=== PATIENT | male | born 1965 | race Two or more races ===

== ENCOUNTER 2019-11-23 15:44 | Inpatient (IN) | payer MEDICARE ==
[~2019-11-23] VITALS: Ht 172.7 cm; Wt 74.8 kg
[2019-11-23 15:58] VITALS: BP 137/82
--- NOTE | 2019-11-23 15:59 | NUR ---
ED Nurse Note: Patient was BIBA from [place], due to small lesion on his left foot. Patient stated he has DM type II and did not take his meds X 2weeks. 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 Patient presented calm, cooperative, AAO x4, VSS at this time, BS 137 at bedside.
[2019-11-23] MEDS ORDERED: Vancomycin 1 GM in NS 275 ML IVPB ONE (16:30)
--- NOTE | 2019-11-23 16:55 | Diagnostic Imaging Report ---
Indication: Left toe pain and injury Comparison: None Findings: 3 views of the left forefoot obtained. There is evidence of erosion of the fourth proximal and distal phalange presumably on the basis of acute osteomyelitis. Correlate clinically. Patient has had prior amputation at the base of the fifth metatarsal. There is a well-corticated periarticular erosion on the medial side of the first interphalangeal joint. Similar finding in the medial side of the second proximal interphalangeal joint also noted. The nature of these lesions is unknown but the incidental obviously and may be due to inflammatory arthritis. Correlate clinically. IMPRESSION: Extensive erosion of the middle and distal phalanges of the fourth toe suspicious for acute osteomyelitis. Correlate clinically. Scattered periarticular erosions. Consider inflammatory arthritis
[2019-11-23 17:10] LABS: BASOPHILS % (AUTO) 1.4 % (0.0-2.0); EOSINOPHILS % (AUTO) 1.4 % (0.0-3.0); HEMATOCRIT 32.6 % (42.0-52.0); HEMOGLOBIN 11.5 G/DL (14.2-18.0); LYMPHOCYTES % (AUTO) 15.2 % (20.0-45.0); MEAN CORPUSCULAR VOLUME 90 FL (80-99); MONOCYTES % (AUTO) 8.4 % (1.0-10.0); NEUTROPHILS % (AUTO) 73.6 % (45.0-75.0); PLATELET COUNT 293 K/UL (150-450); RED BLOOD COUNT 3.63 M/UL (4.70-6.10); RED CELL DISTRIBUTION WIDTH 10.1 % (11.6-14.8); WHITE BLOOD COUNT 8.7 K/UL (4.8-10.8)
[2019-11-23 17:51] LABS: ALANINE AMINOTRANSFERASE 26 U/L (12-78); ANION GAP 11 mmol/L (5-15); ASPARTATE AMINO TRANSFERASE 17 U/L (15-37); BILIRUBIN,TOTAL 0.3 MG/DL (0.2-1.0); BLOOD UREA NITROGEN 22 mg/dL (7-18); CALCIUM 8.3 MG/DL (8.5-10.1); CARBON DIOXIDE 22 MMOL/L (21-32); CHLORIDE 102 MMOL/L (98-107); CREATININE 1.1 MG/DL (0.55-1.30); POTASSIUM 3.6 MMOL/L (3.5-5.1); SODIUM 135 MMOL/L (136-145)
[2019-11-23 17:52] LABS: ALBUMIN 3.3 G/DL (3.4-5.0); ALBUMIN/GLOBULIN RATIO 0.8 (1.0-2.7); ALKALINE PHOSPHATASE 108 U/L (46-116)
--- NOTE | 2019-11-23 21:47 | Emergency Room Report ---
History of Present Illness General Chief Complaint: Skin Rash/Abscess Source: EMS Present Illness Allergies: Coded Allergies: No Known Allergies (Unverified , 11/23/19) Nursing Documentation-[facility] Past Medical History: No History, Except For Hx Hypertension: Yes Hx Diabetes: Yes History Of Psychiatric Problem: Yes - depression Physical Exam Vital Signs Date Time Temp Pulse Resp B/P (MAP) Pulse Ox O2 Delivery O2 Flow Rate FiO2 11/23/19 15:39 98.8 104 22 137/82 (100) 95 Room Air Medical Decision Making Diagnostic Impression: Primary Impression: Cellulitis Additional Impressions: Diabetic foot ulcer Osteomyelitis Laboratory Tests Test 11/23/19 16:36 White Blood Count 8.7 K/UL (4.8-10.8) Red Blood Count 3.63 M/UL (4.70-6.10) L Hemoglobin 11.5 G/DL (14.2-18.0) L Hematocrit 32.6 % (42.0-52.0) L Mean Corpuscular Volume 90 FL (80-99) Mean Corpuscular Hemoglobin 31.8 PG (27.0-31.0) H Mean Corpuscular Hemoglobin Concent 35.4 G/DL (32.0-36.0) Red Cell Distribution Width 10.1 % (11.6-14.8) L Platelet Count 293 K/UL (150-450) Mean Platelet Volume 7.1 FL (6.5-10.1) Neutrophils (%) (Auto) 73.6 % (45.0-75.0) Lymphocytes (%) (Auto) 15.2 % (20.0-45.0) L Monocytes (%) (Auto) 8.4 % (1.0-10.0) Eosinophils (%) (Auto) 1.4 % (0.0-3.0) Basophils (%) (Auto) 1.4 % (0.0-2.0) Sodium Level 135 MMOL/L (136-145) L Potassium Level 3.6 MMOL/L (3.5-5.1) Chloride Level 102 MMOL/L (98-107) Carbon Dioxide Level 22 MMOL/L (21-32) Anion Gap 11 mmol/L (5-15) Blood Urea Nitrogen 22 mg/dL (7-18) H Creatinine 1.1 MG/DL (0.55-1.30) Estimate Glomerular Filtration Rate > 60 mL/min (>60) Glucose Level 161 MG/DL (74-106) H Calcium Level 8.3 MG/DL (8.5-10.1) L Total Bilirubin 0.3 MG/DL (0.2-1.0) Aspartate Amino Transferase (AST) 17 U/L (15-37) Alanine Aminotransferase (ALT) 26 U/L (12-78) Alkaline Phosphatase 108 U/L (46-116) Total Protein 7.6 G/DL (6.4-8.2) Albumin 3.3 G/DL (3.4-5.0) L Globulin 4.3 g/dL Albumin/Globulin Ratio 0.8 (1.0-2.7) L Other X-Ray Diagnostic Results Other X-Ray Diagnostic Results : X-Ray ordered: Toe xray # of Views/Limited Vs Complete: Complete Indication: Pain EP Interpretation: No Interpretation: other - see below Impression: Other - IMPRESSION:Extensive erosion of the middle and distal phalanges of the fourth toe suspicious for osteomyelitis. Last Vital Signs Date Time Temp Pulse Resp B/P (MAP) Pulse Ox O2 Delivery O2 Flow Rate FiO2 11/23/19 15:58 98.8 98 22 137/82 95 Room Air Disposition: ADMITTED INPATIENT Condition: Serious Referrals: NON PHYSICIAN (PCP) Umm Tran DO Nov 23, 2019 21:47
[2019-11-24] VITALS: BP 127/64
--- NOTE | 2019-11-24 00:18 | NUR ---
NURSES NOTE: Received pt at apprx 2130 from ER. Pt is A/OX4, able to communicate needs, denies pain. No outward s/s of distress noted. Breathing pattern is even and unlabored on RA. VS within normal limits. Head to toe assessment completed. Bilateral feet presents with discoloration. Redness and dryness noted. Toe nails also discolored. Amputated fifth digit on both feet. Dr Andrade called for admitting orders. Awaiting call back. Pt oriented to room amenities. Call light within reach. Bed at lowest level. Pt will continue to be monitored.
[2019-11-24 04:00] VITALS: BP 125/71
[2019-11-24] MEDS ORDERED: Vancomycin 1gm/D5W 275ml IVPB SCH ×2 (05:00)
[2019-11-24] MEDS: Piperacillin/Tazobactam 3.375 GM in NS 110 ML IVPB SCH ×3 (06:00→22:08)
--- NOTE | 2019-11-24 06:27 | NUR ---
ED Nurse Note: Patient was admited to [facility] due to celullitis of his left foot. Patient AAO x4, VSS at thos time. Patient was transfered to the unit via gurney, with all belongings.
[2019-11-24] MEDS: NovoLOG Insulin Flexpen SUBQ SCH ×4 (06:30→22:10)
[2019-11-24 07:06] LABS: ANION GAP 9 mmol/L (5-15); BLOOD UREA NITROGEN 13 mg/dL (7-18); CALCIUM 7.8 MG/DL (8.5-10.1); CARBON DIOXIDE 23 MMOL/L (21-32); CHLORIDE 106 MMOL/L (98-107); CREATININE 0.8 MG/DL (0.55-1.30); POTASSIUM 3.8 MMOL/L (3.5-5.1); SODIUM 138 MMOL/L (136-145)
--- NOTE | 2019-11-24 07:30 | NUR ---
HAND OFF: Report given to gaby Dove.
[2019-11-24 07:38] LABS: BASOPHILS % (AUTO) 1.3 % (0.0-2.0); EOSINOPHILS % (AUTO) 2.9 % (0.0-3.0); HEMATOCRIT 28.6 % (42.0-52.0); HEMOGLOBIN 10.2 G/DL (14.2-18.0); LYMPHOCYTES % (AUTO) 21.9 % (20.0-45.0); MEAN CORPUSCULAR VOLUME 90 FL (80-99); MONOCYTES % (AUTO) 9.3 % (1.0-10.0); NEUTROPHILS % (AUTO) 64.5 % (45.0-75.0); PLATELET COUNT 245 K/UL (150-450); RED BLOOD COUNT 3.18 M/UL (4.70-6.10); RED CELL DISTRIBUTION WIDTH 10.3 % (11.6-14.8); WHITE BLOOD COUNT 7.1 K/UL (4.8-10.8)
--- NOTE | 2019-11-24 07:42 | NUR ---
NURSE NOTES: received patient A/A/Ox4, in bed. pleasant and able to verbalize needs. Left lower extremity is swollen and dry scab on the amputated foot. elevated with pillow. patient able to ambulate with an assistive device. IV access patent and intact. IVF infusing well. no acute resp distress noted. call light is within reach. bed alarm engaged and locked. will cont to monitor.
[2019-11-24 08:00] VITALS: BP 144/82
[2019-11-24] MEDS: Enoxaparin 40mg Inj SUBQ SCH (09:21)
--- NOTE | 2019-11-24 10:25 | NUR ---
[facility] CQ DEVELOPER CONSULT SW received a referral for homelessness on 11/24/2019. Pt presents as A&O 4x, cooperative and friendly. Pt is and has 3 adult children. Pt has been homeless for more than 5 years. Per pt, the address on facesheet, [address] , [place] [address] is his family's address. Pt reports he receives poor family support and no social support. Emergency contact provided: Ck Sawyer (eldest son) [phone]. Pt receives SSI, self-payee, and has some income left for this month. SW reviewed SUB/TOB use hx w/ pt. PT uses tobacco and denies substance abuse. Pt declined counseling/tx intervention/resource on substance abuse. PT has no AD/POLST and pt is willing to receive information on AD. Pt denies hx of mental illness, but reports hx of Seizure. Pt denies hx of SI/HI and the current SI/HI. Pt wears glasses, and is ambulatory w/ cane. Pt reports he is independent w/ ADLs. Per pt, he has two bicycles and two scooters in his storage. Bicycles and scooters are his main transportation. SW and pt discussed possible placement options including board and care , independent living facilities and shelters. Pt reports he was placed various board and acres and independent living facilities in the past and he no longer wants to consider such placements. Pt also reports he was linked to various homeless programs but there was no F/U so he refused to get information/resource on homeless programs. Pt states "I want to get my own place." SW explained the current section 8 voucher and low income housing situation that such option is not available immediately. Pt verbalized understanding. SW provide the list of winter shelters, [facility] Directive and homeless resource including drop in centers, list of transitional living. Signed: 11/24/19 at 1045 by JUAN CARLOS MTZ <Co-Signature Required>
--- NOTE | 2019-11-24 10:33 | History and Physical ---
History of Present Illness General Date patient seen: Nov 24, 2019 Reason for Hospitalization: Skin Rash/Abscess Present Illness HPI Patient is a pleasant 54-year-old male with history of diabetes and left foot fifth toe amputation from prior diabetic foot infection presented to the ER with worsening left foot fourth toe infection. Patient states that this problem started about 2 months ago. Initially started with a sore on the same toe. Patient does not wear proper diabetic shoes. He does not take his medications regularly either. He feels depressed however denies suicidal ideation. He says his SSI money is not enough to allow him to live alone and he does not like living with other people. He denies any fever, chills, nausea , vomiting, diarrhea. He was previously seen at [facility]. Denies any recent trauma. Past medical and surgical history: Diabetes and fifth ray amputation bilateral feet Social history: Smokes cigarettes, denies illicit drug use or alcohol Family history: Does not know if any of his family members had diabetes Allergies: Coded Allergies: No Known Allergies (Unverified , 11/23/19) Patient History Healthcare decision maker Resuscitation status Full Code Advanced Directive on File No Review of Systems Constitutional: Denies: no symptoms, see HPI, chills, sweats, fever, malaise, weakness, other Eye: Denies: no symptoms, see HPI, eye pain, blurred vision, tearing, double vision, nose pain, nose congestion, acuity changes, discharge, other ENT: Denies: no symptoms, see HPI, ear pain, ear discharge, nose pain, nose congestion, throat pain, throat swelling, mouth pain, hearing loss, nasal discharge, other Respiratory: Denies: no symptoms, see HPI, cough, orthopnea, shortness of breath, stridor, wheezing, COLBERT, sputum, other Cardiovascular: Denies: no symptoms, see HPI, chest pain, edema, palpitations, syncope, PND, other Musculoskeletal: Denies: no symptoms, see HPI, back pain, gout, joint pain, joint swelling, muscle pain, muscle stiffness, other Skin: Reports: other - 4th left toe draiange Psychiatric: Reports: anxiety, depressed feelings, emotional problems Neurological: Denies: no symptoms, see HPI, headache, numbness, paresthesia, seizure, tingling, tremors, focal weakness, syncope, dizziness, other Endocrine: Denies: no symptoms, see HPI, excessive sweating, flushing, intolerance to temperature, increased thirst, increased urine, unexplained weight loss, other Hematologic/Lymphatic: Denies: no symptoms, see HPI, anemia, blood clots, easy bleeding, easy bruising, swollen glands, diathesis, other Physical Exam General Appearance: no apparent distress Lines, tubes and drains: peripheral HEENT: normocephalic, atraumatic, anicteric Neck: non-tender, normal alignment, supple Respiratory/Chest: chest wall non-tender, lungs clear, normal breath sounds Cardiovascular/Chest: normal peripheral pulses, normal rate, regular rhythm, no gallop/murmur, no JVD Abdomen: normal bowel sounds, non tender, soft, no organomegaly Extremities: other Skin Exam: other - full-thickness ulceration noted on the lateral aspect of the left fourth toe. There is scant serous drainage noted from the site. No malodor is noted. Skin is erythematous. No bone or tendon exposed. Surgical incision sites from previous surgeries bilateral are healed. Neurologic: steep tender II-XII grossly normal, no motor/sensory deficits, oriented x 3 Musculoskeletal: normal muscle bulk Physical Exam Narrative Last 24 Hour Vital Signs Date Time Temp Pulse Resp B/P (MAP) Pulse Ox O2 Delivery O2 Flow Rate FiO2 11/24/19 08:00 98.6 85 19 144/82 (102) 99 11/24/19 04:00 97.8 77 14 125/71 (89) 99 11/24/19 00:15 Room Air 11/24/19 00:00 98.9 81 15 127/64 (85) 98 11/23/19 21:13 98.2 84 18 125/89 99 Room Air 11/23/19 15:58 98.8 98 22 137/82 95 Room Air 11/23/19 15:39 98.8 104 22 137/82 (100) 95 Room Air Intake and Output 11/23/19 11/24/19 19:00 07:00 Intake Total 710 ml Output Total 800 ml Balance -90 ml Intake Oral 710 ml Output Urine Total 800 ml # Voids 1 Laboratory Tests Test 11/23/19 16:36 11/24/19 06:15 White Blood Count 8.7 K/UL (4.8-10.8) 7.1 K/UL (4.8-10.8) Red Blood Count 3.63 M/UL (4.70-6.10) L 3.18 M/UL (4.70-6.10) L Hemoglobin 11.5 G/DL (14.2-18.0) L 10.2 G/DL (14.2-18.0) L Hematocrit 32.6 % (42.0-52.0) L 28.6 % (42.0-52.0) L Mean Corpuscular Volume 90 FL (80-99) 90 FL (80-99) Mean Corpuscular Hemoglobin 31.8 PG (27.0-31.0) H 32.2 PG (27.0-31.0) H Mean Corpuscular Hemoglobin Concent 35.4 G/DL (32.0-36.0) 35.8 G/DL (32.0-36.0) Red Cell Distribution Width 10.1 % (11.6-14.8) L 10.3 % (11.6-14.8) L Platelet Count 293 K/UL (150-450) 245 K/UL (150-450) Mean Platelet Volume 7.1 FL (6.5-10.1) 7.2 FL (6.5-10.1) Neutrophils (%) (Auto) 73.6 % (45.0-75.0) 64.5 % (45.0-75.0) Lymphocytes (%) (Auto) 15.2 % (20.0-45.0) L 21.9 % (20.0-45.0) Monocytes (%) (Auto) 8.4 % (1.0-10.0) 9.3 % (1.0-10.0) Eosinophils (%) (Auto) 1.4 % (0.0-3.0) 2.9 % (0.0-3.0) Basophils (%) (Auto) 1.4 % (0.0-2.0) 1.3 % (0.0-2.0) Sodium Level 135 MMOL/L (136-145) L 138 MMOL/L (136-145) Potassium Level 3.6 MMOL/L (3.5-5.1) 3.8 MMOL/L (3.5-5.1) Chloride Level 102 MMOL/L (98-107) 106 MMOL/L (98-107) Carbon Dioxide Level 22 MMOL/L (21-32) 23 MMOL/L (21-32) Anion Gap 11 mmol/L (5-15) 9 mmol/L (5-15) Blood Urea Nitrogen 22 mg/dL (7-18) H 13 mg/dL (7-18) Creatinine 1.1 MG/DL (0.55-1.30) 0.8 MG/DL (0.55-1.30) Estimat Glomerular Filtration Rate > 60 mL/min (>60) > 60 mL/min (>60) Glucose Level 161 MG/DL (74-106) H 203 MG/DL (74-106) H Calcium Level 8.3 MG/DL (8.5-10.1) L 7.8 MG/DL (8.5-10.1) L Total Bilirubin 0.3 MG/DL (0.2-1.0) Aspartate Amino Transf (AST/SGOT) 17 U/L (15-37) Alanine Aminotransferase (ALT/SGPT) 26 U/L (12-78) Alkaline Phosphatase 108 U/L (46-116) Total Protein 7.6 G/DL (6.4-8.2) Albumin 3.3 G/DL (3.4-5.0) L Globulin 4.3 g/dL Albumin/Globulin Ratio 0.8 (1.0-2.7) L Microbiology Date/Time Source Procedure Growth Status 11/23/19 20:45 Rectum Received Height (Feet): 5 Height (Inches): 8.00 Weight (Pounds): 165 Medications Current Medications Medications (Trade) Dose Ordered Sig/Isela Route PRN Reason Start Time Stop Time Status Last Admin Dose Admin Acetaminophen (Tylenol) 650 mg Q6H PRN ORAL Mild Pain/Temp > 100.5 11/24/19 03:30 12/24/19 03:29 Acetaminophen/ Hydrocodone Bitart ([place] 10/325) 1 tab Q6H PRN ORAL Severe Pain (Pain Scale 7-10) 11/24/19 03:30 12/01/19 03:29 Acetaminophen/ Hydrocodone Bitart ([place] 5/325) 1 tab Q6H PRN ORAL Moderate Pain (Pain Scale 4-6) 11/24/19 03:30 12/01/19 03:29 Dextrose (Dextrose 50%) 25 ml Q30M PRN IV Hypoglycemia 11/24/19 04:00 12/24/19 03:59 Dextrose (Dextrose 50%) 50 ml Q30M PRN IV Hypoglycemia 11/24/19 04:00 12/24/19 03:59 Enoxaparin Sodium (Lovenox) 40 mg DAILY SUBQ 11/24/19 09:00 12/24/19 08:59 11/24/19 09:21 Insulin Aspart (NovoLOG) BEFORE MEALS AND HS SUBQ 11/24/19 06:30 12/24/19 06:29 11/24/19 06:30 Ondansetron HCl (Zofran) 4 mg Q4H PRN IVP Nausea & Vomiting 11/24/19 03:30 12/24/19 03:29 Piperacillin Sod/ Tazobactam Sod 3.375 gm/Sodium Chloride 110 ml @ 27.5 mls/hr EVERY 8 HOURS IVPB 11/24/19 06:00 11/29/19 05:59 11/24/19 06:00 Sodium Chloride 1,000 ml @ 75 mls/hr [id number] IV 11/24/19 05:00 11/25/19 04:59 11/24/19 05:15 Vancomycin HCl (Vanco rx to dose) 1 ea DAILY MISC 11/24/19 09:00 12/24/19 08:59 Vancomycin HCl 1 gm/Dextrose 275 ml @ 183.708 mls/hr Q12H IVPB 11/24/19 05:00 11/29/19 04:59 11/24/19 05:00 Assessment/Plan Problem List: (1) Uncontrolled diabetes mellitus ICD Codes: E11.65 - Type 2 diabetes mellitus with hyperglycemia SNOMED: 87275881, 308957058 (2) Osteomyelitis ICD Codes: M86.9 - Osteomyelitis, unspecified SNOMED: 96627964, 44763656 (3) Diabetic foot ulcer ICD Codes: E11.621 - Type 2 diabetes mellitus with foot ulcer; L97.509 - Non- pressure chronic ulcer of other part of unspecified foot with unspecified severity SNOMED: 406755803, 74519832 Status: stable Assessment/Plan: 54 year old male with uncontrolled DM, medication non compliance, prior multiple amputations presents with left 4th toe infection. #Osteomyelitis of the left fourth toe. #Diabetic foot ulcer, left foot. #Type 2 diabetes mellitus with peripheral neuropathy. #History of healed partial fifth ray amputations, bilateral. #Medication non compliance Med surg IV zosyn and vancomycin, wound and blood cultures ID and podiatry consults MRI left foot glycemic control, insulin ordered. keep glucose 140-180 range Check hemoglobin A1c # ?Depression Denies suicidal ideation, will obtains psychiatry consult with Dr. Templeton I spent 70 minutes on this encounter. Greater than 50% spent in counseling and care coordination. Case discussed with ID and podiatry. Plan of care discussed with patient. Time of note may not reflect time of encounter. Tam Garcia M.D. Nov 24, 2019 10:33
--- NOTE | 2019-11-24 11:49 | NUR ---
NURSE NOTES: initiate wound care treatment on the left lower extremity. wash with soap and water, cleanse with NS, wiped with barrier film, betadine and covered with optifoam. kept LLE elevated with a pillow. will cont to monitor.
[2019-11-24 12:00] VITALS: BP 118/70
--- NOTE | 2019-11-24 12:50 | Infectious Diseases Prog Note ---
Assessment/Plan Assessment/Plan Full consult dictated: A) 1) left foot 4th toe osteomyelitis/wound infection 2) pmh noted 3) allergies - nkda P) 1) zosyn and vancomycin 2) check wound culture 3) podiatry evaluation 4) thank you Subjective Allergies: Coded Allergies: No Known Allergies (Unverified , 11/23/19) Objective Vital Signs Last 24 Hour Vital Signs Date Time Temp Pulse Resp B/P (MAP) Pulse Ox O2 Delivery O2 Flow Rate FiO2 11/24/19 08:00 98.6 85 19 144/82 (102) 99 11/24/19 04:00 97.8 77 14 125/71 (89) 99 11/24/19 00:15 Room Air 11/24/19 00:00 98.9 81 15 127/64 (85) 98 11/23/19 21:13 98.2 84 18 125/89 99 Room Air 11/23/19 15:58 98.8 98 22 137/82 95 Room Air 11/23/19 15:39 98.8 104 22 137/82 (100) 95 Room Air Height (Feet): 5 Height (Inches): 8.00 Weight (Pounds): 165 Microbiology Date/Time Source Procedure Growth Status 11/23/19 20:45 Rectum Received Laboratory Tests Test 11/23/19 16:36 11/24/19 06:15 White Blood Count 8.7 K/UL (4.8-10.8) 7.1 K/UL (4.8-10.8) Red Blood Count 3.63 M/UL (4.70-6.10) L 3.18 M/UL (4.70-6.10) L Hemoglobin 11.5 G/DL (14.2-18.0) L 10.2 G/DL (14.2-18.0) L Hematocrit 32.6 % (42.0-52.0) L 28.6 % (42.0-52.0) L Mean Corpuscular Volume 90 FL (80-99) 90 FL (80-99) Mean Corpuscular Hemoglobin 31.8 PG (27.0-31.0) H 32.2 PG (27.0-31.0) H Mean Corpuscular Hemoglobin Concent 35.4 G/DL (32.0-36.0) 35.8 G/DL (32.0-36.0) Red Cell Distribution Width 10.1 % (11.6-14.8) L 10.3 % (11.6-14.8) L Platelet Count 293 K/UL (150-450) 245 K/UL (150-450) Mean Platelet Volume 7.1 FL (6.5-10.1) 7.2 FL (6.5-10.1) Neutrophils (%) (Auto) 73.6 % (45.0-75.0) 64.5 % (45.0-75.0) Lymphocytes (%) (Auto) 15.2 % (20.0-45.0) L 21.9 % (20.0-45.0) Monocytes (%) (Auto) 8.4 % (1.0-10.0) 9.3 % (1.0-10.0) Eosinophils (%) (Auto) 1.4 % (0.0-3.0) 2.9 % (0.0-3.0) Basophils (%) (Auto) 1.4 % (0.0-2.0) 1.3 % (0.0-2.0) Sodium Level 135 MMOL/L (136-145) L 138 MMOL/L (136-145) Potassium Level 3.6 MMOL/L (3.5-5.1) 3.8 MMOL/L (3.5-5.1) Chloride Level 102 MMOL/L (98-107) 106 MMOL/L (98-107) Carbon Dioxide Level 22 MMOL/L (21-32) 23 MMOL/L (21-32) Anion Gap 11 mmol/L (5-15) 9 mmol/L (5-15) Blood Urea Nitrogen 22 mg/dL (7-18) H 13 mg/dL (7-18) Creatinine 1.1 MG/DL (0.55-1.30) 0.8 MG/DL (0.55-1.30) Estimat Glomerular Filtration Rate > 60 mL/min (>60) > 60 mL/min (>60) Glucose Level 161 MG/DL (74-106) H 203 MG/DL (74-106) H Calcium Level 8.3 MG/DL (8.5-10.1) L 7.8 MG/DL (8.5-10.1) L Total Bilirubin 0.3 MG/DL (0.2-1.0) Aspartate Amino Transf (AST/SGOT) 17 U/L (15-37) Alanine Aminotransferase (ALT/SGPT) 26 U/L (12-78) Alkaline Phosphatase 108 U/L (46-116) Total Protein 7.6 G/DL (6.4-8.2) Albumin 3.3 G/DL (3.4-5.0) L Globulin 4.3 g/dL Albumin/Globulin Ratio 0.8 (1.0-2.7) L Current Medications Medications (Trade) Dose Ordered Sig/Isela Route PRN Reason Start Time Stop Time Status Last Admin Dose Admin Acetaminophen (Tylenol) 650 mg Q6H PRN ORAL Mild Pain/Temp > 100.5 11/24/19 03:30 12/24/19 03:29 Acetaminophen/ Hydrocodone Bitart ([place] 10/325) 1 tab Q6H PRN ORAL Severe Pain (Pain Scale 7-10) 11/24/19 03:30 12/01/19 03:29 Acetaminophen/ Hydrocodone Bitart ([place] 5/325) 1 tab Q6H PRN ORAL Moderate Pain (Pain Scale 4-6) 11/24/19 03:30 12/01/19 03:29 Dextrose (Dextrose 50%) 25 ml Q30M PRN IV Hypoglycemia 11/24/19 04:00 12/24/19 03:59 Dextrose (Dextrose 50%) 50 ml Q30M PRN IV Hypoglycemia 11/24/19 04:00 12/24/19 03:59 Enoxaparin Sodium (Lovenox) 40 mg DAILY SUBQ 11/24/19 09:00 12/24/19 08:59 11/24/19 09:21 Insulin Aspart (NovoLOG) BEFORE MEALS AND HS SUBQ 11/24/19 06:30 12/24/19 06:29 11/24/19 06:30 Ondansetron HCl (Zofran) 4 mg Q4H PRN IVP Nausea & Vomiting 11/24/19 03:30 12/24/19 03:29 Piperacillin Sod/ Tazobactam Sod 3.375 gm/Sodium Chloride 110 ml @ 27.5 mls/hr EVERY 8 HOURS IVPB 11/24/19 06:00 11/29/19 05:59 11/24/19 06:00 Sodium Chloride 1,000 ml @ 75 mls/hr [id number] IV 11/24/19 05:00 11/25/19 04:59 11/24/19 05:15 Vancomycin HCl (Vanco rx to dose) 1 ea DAILY MISC 11/24/19 09:00 12/24/19 08:59 Vancomycin HCl 1 gm/Dextrose 275 ml @ 183.708 mls/hr Q12H IVPB 11/24/19 05:00 11/29/19 04:59 11/24/19 05:00 Martha Fuller MD Nov 24, 2019 12:50
--- NOTE | 2019-11-24 13:04 | NUR ---
NURSE NOTES: SENT WOUND SWAB FOR CX AND GS TO THE LAB.
--- NOTE | 2019-11-24 13:29 | Consultation ---
Consult Note Assessment/Plan A/ 1) Osteomyelitis left 4th toe 2) DFU left foot 3) DM 2 with neuropathy 4) h/o healed partial 5th ray amps bilateral P/ 1) Chart reviewed. 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 Patient wishes to proceed with surgical procedure. Risks explained and he is amenable to proceed 2) MRI ordered for surgical planning 3) Wound care orders placed 4) Cytotechnologist Supervisor consult for DM shoes 5) Abx per ID Thank you Marcio Mosher DPM Nov 24, 2019 13:29
--- NOTE | 2019-11-24 14:30 | NUR ---
CASE MANAGEMENT:REVIEW 54 YR OLD MALE BIBA FROM STREET CC: LT FOOT PAIN AND ULCER SI: CELLULITIS 98.1 84 18 125/89 99% ON RA H/H-11.5/32.6 BUUN+22 IS; IV VANCOMYCIN 1L NS BOLUS : TO MED/SURG 3 EAST PLAN: PODIATRY AND SURGICAL CONSULT CALLED
--- NOTE | 2019-11-24 15:18 | Consultation ---
History of Present Illness General Date patient seen: Nov 24, 2019 Reason for Hospitalization: Skin Rash/Abscess Present Illness HPI This is a 54-year-old male diabetic with history of left foot fifth ray amputation for prior infection that presents to [facility] for evaluation of worsening left foot fourth ray cellulitis and infection. Patient started to has been ongoing for a few months overall but in the past week it has become significantly worse suddenly with purulent drainage noted as well as more tenderness. Given history and current findings came in for evaluation. Admitted for further care and management. Surgery called to evaluate and assist with care. Patient seen, patient evaluate, chart reviewed. Patient states a similar event happened to the fifth ray years ago and required amputation at [facility]. He is tried to cure himself since but has decreased sensation so unsure if he had absorbed any trauma. He has not follow- up with his primary care physician or continue with his regular care and is a poor historian overall. He states he is noncompliant with his medication regimens that have been given in the past Allergies: Coded Allergies: No Known Allergies (Unverified , 11/23/19) Patient History History Provided By: Patient, Medical Record, PMD Healthcare decision maker Resuscitation status Full Code Advanced Directive on File No Past Medical/Surgical History Past Medical/Surgical History: (1) Osteomyelitis (2) Diabetic foot ulcer (3) Cellulitis Review of Systems Review of Symptoms General ROS: no weight loss or fever Psychological ROS: no depression or mood changes, no memory loss Ophthalmic ROS: no visual changes or eye irritation ENT ROS: no nasal congestion, hearing loss, dizziness Allergy and Immunology ROS: no allergic symptoms or urticaria Hematological and Lymphatic ROS: no swollen glands, unusual bleeding or bruising Endocrine ROS: no polyuria, polydipsia, weight changes, temperature intolerance Respiratory ROS: no cough, shortness of breath, or wheezing Cardiovascular ROS: no chest pain or dyspnea on exertion Gastrointestinal ROS: denies abdominal pain, bright red blood in stool. Musculoskeletal ROS: no myalgias or arthralgias Neurological ROS: no TIA or stroke symptoms Dermatological ROS: no new or changing skin lesions, rashes or pruritis Physical Exam Physical Exam General appearance: alert, cooperative, no distress, appears stated age Head: Normocephalic, without obvious abnormality, atraumatic Eyes: conjunctivae/corneas clear. PERRL, EOM's intact. Fundi benign Throat: Lips, mucosa, and tongue normal. Teeth and gums normal Neck: supple, symmetrical, trachea midline, no adenopathy, thyroid: not enlarged, symmetric, no tenderness/mass/nodules, no carotid bruit and no JVD Lungs: clear to auscultation bilaterally Heart: regular rate and rhythm, S1, S2 normal, no murmur, click, rub or gallop Abdomen: soft, non-tender. Bowel sounds normal. No masses, no organomegaly Extremities: extremities left foot cellulitis left foot fifth ray amputation left foot fourth ray infection with osteo-and abscess Pulses: 2+ and symmetric Skin: Skin color, texture, turgor normal. No rashes or lesions Neurologic: Grossly normal Last 24 Hour Vital Signs Date Time Temp Pulse Resp B/P (MAP) Pulse Ox O2 Delivery O2 Flow Rate FiO2 11/24/19 12:00 98.7 74 18 118/70 (86) 99 11/24/19 08:00 98.6 85 19 144/82 (102) 99 11/24/19 04:00 97.8 77 14 125/71 (89) 99 11/24/19 00:15 Room Air 11/24/19 00:00 98.9 81 15 127/64 (85) 98 11/23/19 21:13 98.2 84 18 125/89 99 Room Air 11/23/19 15:58 98.8 98 22 137/82 95 Room Air 11/23/19 15:39 98.8 104 22 137/82 (100) 95 Room Air Intake and Output 11/23/19 11/24/19 19:00 07:00 Intake Total 737.5 ml Output Total 800 ml Balance -62.5 ml Intake Oral 710 ml IV Total 27.5 ml Output Urine Total 800 ml # Voids 1 Laboratory Tests Test 11/23/19 16:36 11/24/19 06:15 White Blood Count 8.7 K/UL (4.8-10.8) 7.1 K/UL (4.8-10.8) Red Blood Count 3.63 M/UL (4.70-6.10) L 3.18 M/UL (4.70-6.10) L Hemoglobin 11.5 G/DL (14.2-18.0) L 10.2 G/DL (14.2-18.0) L Hematocrit 32.6 % (42.0-52.0) L 28.6 % (42.0-52.0) L Mean Corpuscular Volume 90 FL (80-99) 90 FL (80-99) Mean Corpuscular Hemoglobin 31.8 PG (27.0-31.0) H 32.2 PG (27.0-31.0) H Mean Corpuscular Hemoglobin Concent 35.4 G/DL (32.0-36.0) 35.8 G/DL (32.0-36.0) Red Cell Distribution Width 10.1 % (11.6-14.8) L 10.3 % (11.6-14.8) L Platelet Count 293 K/UL (150-450) 245 K/UL (150-450) Mean Platelet Volume 7.1 FL (6.5-10.1) 7.2 FL (6.5-10.1) Neutrophils (%) (Auto) 73.6 % (45.0-75.0) 64.5 % (45.0-75.0) Lymphocytes (%) (Auto) 15.2 % (20.0-45.0) L 21.9 % (20.0-45.0) Monocytes (%) (Auto) 8.4 % (1.0-10.0) 9.3 % (1.0-10.0) Eosinophils (%) (Auto) 1.4 % (0.0-3.0) 2.9 % (0.0-3.0) Basophils (%) (Auto) 1.4 % (0.0-2.0) 1.3 % (0.0-2.0) Sodium Level 135 MMOL/L (136-145) L 138 MMOL/L (136-145) Potassium Level 3.6 MMOL/L (3.5-5.1) 3.8 MMOL/L (3.5-5.1) Chloride Level 102 MMOL/L (98-107) 106 MMOL/L (98-107) Carbon Dioxide Level 22 MMOL/L (21-32) 23 MMOL/L (21-32) Anion Gap 11 mmol/L (5-15) 9 mmol/L (5-15) Blood Urea Nitrogen 22 mg/dL (7-18) H 13 mg/dL (7-18) Creatinine 1.1 MG/DL (0.55-1.30) 0.8 MG/DL (0.55-1.30) Estimat Glomerular Filtration Rate > 60 mL/min (>60) > 60 mL/min (>60) Glucose Level 161 MG/DL (74-106) H 203 MG/DL (74-106) H Calcium Level 8.3 MG/DL (8.5-10.1) L 7.8 MG/DL (8.5-10.1) L Total Bilirubin 0.3 MG/DL (0.2-1.0) Aspartate Amino Transf (AST/SGOT) 17 U/L (15-37) Alanine Aminotransferase (ALT/SGPT) 26 U/L (12-78) Alkaline Phosphatase 108 U/L (46-116) Total Protein 7.6 G/DL (6.4-8.2) Albumin 3.3 G/DL (3.4-5.0) L Globulin 4.3 g/dL Albumin/Globulin Ratio 0.8 (1.0-2.7) L Microbiology Date/Time Source Procedure Growth Status 11/23/19 20:45 Rectum Received Height (Feet): 5 Height (Inches): 8.00 Weight (Pounds): 165 Medications Current Medications Medications (Trade) Dose Ordered Sig/Isela Route PRN Reason Start Time Stop Time Status Last Admin Dose Admin Acetaminophen (Tylenol) 650 mg Q6H PRN ORAL Mild Pain/Temp > 100.5 11/24/19 03:30 12/24/19 03:29 Acetaminophen/ Hydrocodone Bitart ([place] 10/325) 1 tab Q6H PRN ORAL Severe Pain (Pain Scale 7-10) 11/24/19 03:30 12/01/19 03:29 Acetaminophen/ Hydrocodone Bitart ([place] 5/325) 1 tab Q6H PRN ORAL Moderate Pain (Pain Scale 4-6) 11/24/19 03:30 12/01/19 03:29 Dextrose (Dextrose 50%) 25 ml Q30M PRN IV Hypoglycemia 11/24/19 04:00 12/24/19 03:59 Dextrose (Dextrose 50%) 50 ml Q30M PRN IV Hypoglycemia 11/24/19 04:00 12/24/19 03:59 Enoxaparin Sodium (Lovenox) 40 mg DAILY SUBQ 11/24/19 09:00 12/24/19 08:59 11/24/19 09:21 Insulin Aspart (NovoLOG) BEFORE MEALS AND HS SUBQ 11/24/19 06:30 12/24/19 06:29 11/24/19 06:30 Ondansetron HCl (Zofran) 4 mg Q4H PRN IVP Nausea & Vomiting 11/24/19 03:30 12/24/19 03:29 Piperacillin Sod/ Tazobactam Sod 3.375 gm/Sodium Chloride 110 ml @ 27.5 mls/hr EVERY 8 HOURS IVPB 11/24/19 06:00 11/29/19 05:59 11/24/19 06:00 Sodium Chloride 1,000 ml @ 75 mls/hr [id number] IV 11/24/19 05:00 11/25/19 04:59 11/24/19 05:15 Vancomycin HCl (Vanco rx to dose) 1 ea DAILY MISC 11/24/19 09:00 12/24/19 08:59 Vancomycin HCl 1 gm/Sodium Chloride 275 ml @ 183.708 mls/hr Q12H IVPB 11/24/19 17:00 11/29/19 16:59 Assessment/Plan Problem List: (1) Osteomyelitis Assessment & Plan: Osteomyelitis left foot fourth ray history of prior on the fifth ray status post amputation Labs noted MRI ordered Seen by podiatry plan for amputation which patient is amenable to Continue with local wound care and antibiotics cellulitis There is evidence of erosion of the fourth proximal and distal phalange presumably on the basis of acute osteomyelitis. Correlate clinically. Patient has had prior amputation at the base of the fifth metatarsal. There is a well-corticated periarticular erosion on the medial side of the first interphalangeal joint. Similar finding in the medial side of the second proximal interphalangeal joint also noted. The nature of these lesions is unknown but the incidental obviously and may be due to inflammatory arthritis. Correlate clinically. IMPRESSION: Extensive erosion of the middle and distal phalanges of the fourth toe suspicious for acute osteomyelitis. Correlate clinically. Scattered periarticular erosions. Consider inflammatory arthritis ICD Codes: M86.9 - Osteomyelitis, unspecified SNOMED: 78521296, [id number] (2) Diabetic foot ulcer ICD Codes: E11.621 - Type 2 diabetes mellitus with foot ulcer; L97.509 - Non- pressure chronic ulcer of other part of unspecified foot with unspecified severity SNOMED: 175645600, 88259670 (3) Cellulitis Assessment & Plan: Left foot cellulitis secondary to infection and abscess of the fourth ray Antibiotics as per infectious disease Podiatry eval Plan for surgery with podiatry once imaging available Thank you for let me participate patient's care will follow with recommendations ICD Codes: L03.90 - Cellulitis, unspecified SNOMED: 639205018 [facility] Hospital declaration \ Matthew Loera Nov 24, 2019 15:18
[2019-11-24 16:04] VITALS: BP 134/76
--- NOTE | 2019-11-24 16:11 | Diagnostic Imaging Report ---
Indication: Left fourth toe open wound, prior history of fifth toe amputation Technique: Sagittal, axial, coronal T1 fast spin echo and FSE STIR images were obtained of the forefoot Comparison: Toe radiograph 11/23/2019 Findings: Patient is status post amputation of the fifth digit at the level of the midshaft metatarsal. The stump of the fifth metatarsal demonstrates normal marrow signal. Markedly abnormal increased STIR and decreased T1 marrow signal is seen involving the fourth proximal, middle, and distal phalanges T1 images demonstrate evidence of fairly extensive destruction of all 3 bones. Slightly increased STIR signal is seen within the third metatarsal shaft and neck. There is only equivocal minimal T1 signal abnormality. There is also slightly increased STIR signal within the third proximal phalanx without evidence of T1 signal abnormality. The first metatarsal head and neck demonstrate increased STIR signal, with suggestion of slight T1 signal abnormality. No phalangeal signal abnormality demonstrated. There is, however, increased STIR and decreased T1 signal within the medial sesamoid. High STIR signal consistent with edema is seen circumferentially surrounding the second third and fourth digits, and within the dorsum and plantar surface of the foot, predominantly within the superficial fat but also within the plantar side deep muscular tendinous compartment. No discrete fluid collection to suggest abscess is demonstrated. Impression: Findings are highly suspicious for osteomyelitis of the fourth proximal, middle, and distal phalanges. STIR signal abnormality and subtle T1 signal abnormality of the first metatarsal head and neck, suspicious but not conclusive for acute osteomyelitis Abnormal increased STIR and decreased T1 signal within the medial first metatarsal sesamoid, suspicious for osteomyelitis versus injury of this bone Slightly increased her signal in the third metatarsal shaft and neck, with only equivocal minimal T1 signal abnormality. Slightly increased STIR signal within the third proximal phalanx without T1 signal abnormality This could represent reactive changes versus very early osteomyelitis changes Soft tissue changes, as described. Given stated clinical history, most likely on the basis of cellulitis. Edema of hemodynamic origin also possible. No definite drainable abscess demonstrated
[2019-11-24 17:35] LABS: INR 0.9 (0.9-1.1)
[2019-11-24] MEDS: Vancomycin 1 GM in NS 275 ML IVPB SCH (17:57)
--- NOTE | 2019-11-24 18:30 | Consultation ---
DATE OF CONSULTATION: 11/23/2019 CONSULTING PHYSICIAN: Marcio Mosher D.P.M. REFERRING PHYSICIAN: Tam Garcia M.D. REASON FOR CONSULTATION: Infected diabetic foot ulcer. HISTORY OF PRESENT ILLNESS: The patient is a 54-year-old male who was admitted to the [facility] on 11/23/2019 for infected diabetic foot ulcer, left foot. The patient states that the problem started about 2 months ago. He has had a series of amputations on bilateral feet, which he feels that resulted in his current condition. The current episode began about 2 months ago where he developed a sore on the toe which progressed. He admits that he does not have proper diabetic shoes and that could also be a contributing factor. Currently denies any fevers, chills, nausea, or vomiting, and states that previously he has been treated by Dr. 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 PAST MEDICAL HISTORY: Significant for diabetes mellitus. PAST SURGICAL HISTORY: Includes partial fifth ray amputations bilateral feet. ALLERGIES: He has no known drug allergies. MEDICATIONS: Per MAR and include vancomycin and Zosyn. FAMILY HISTORY: Noncontributory. SOCIAL HISTORY: Noncontributory. REVIEW OF SYSTEMS: HEENT: The patient denies any headaches, blurred vision, or ringing in the ears. CARDIORESPIRATORY: The patient denies any chest pain or shortness of breath. GENITOURINARY: The patient denies any urgency, frequency, burning upon urination, or hematuria. GASTROINTESTINAL: The patient denies any constipation, diarrhea, or blood in stool. PHYSICAL EXAMINATION: VITAL SIGNS: Temperature is 98.7, pulse is 74, respirations 18, blood pressure is 118/70, saturating 99% on room air. LOWER EXTREMITIES: Vascular, palpable pedal pulses noted bilaterally. Feet are equally warm. There is generally no edema noted except for edematous left fourth toe. No cyanosis of the toes noted. DERMATOLOGICAL: There is a full-thickness ulceration noted on the lateral aspect of the left fourth toe. There is scant serous drainage noted from the site. No malodor is noted. Skin is erythematous. No bone or tendon exposed. Remaining dermatological exam is unremarkable. Surgical incision sites from previous surgeries bilateral are healed. NEUROLOGICAL: Protective threshold is diminished. MUSCULOSKELETAL: 4/5 muscle strength noted anterior, lateral, and posterior muscle groups of bilateral lower extremities. There are partial fifth ray amputations noted bilaterally. No other gross deformities are noted. The patient ambulates without complication. LABORATORY DATA: White blood cell count is 7.1, hemoglobin/hematocrit is 10.2/28.6, platelet count is 245. Potassium is 3.8, BUN is 13, creatinine is 0.8, glucose is 203. Albumin is 3.3. Foot x-ray done on this admission of the left foot shows extensive erosion of the middle and distal phalanges of the fourth toe, suspicious for acute osteomyelitis. ASSESSMENT: 1. Osteomyelitis of the left fourth toe. 2. Diabetic foot ulcer, left foot. 3. Type 2 diabetes mellitus with peripheral neuropathy. 4. History of healed partial fifth ray amputations, bilateral. PLAN: 1. Chart was reviewed. Discussed options with the patient including long-term IV antibiotics versus surgery. The patient wishes to proceed with surgical intervention. Does not wish to accept the risks of prolonged antibiotics. Surgical risks and complications were explained to the patient including infection, chronic wound, pain, admissions, further surgery. He understands and is amenable to proceed. 2. MRI of the left foot ordered for surgical planning. 3. Wound care orders placed. 4. Air Breaker Operator consult for diabetic shoes. 5. Antibiotics per Infectious Disease. Thank you for the courtesy of this consultation. Marcio Mosher D.P.M. DR: SIDRA JOB#: [id number] CC: JEREMY
[2019-11-24] MEDS: HYDROcodone/Acetamin 10/325 tab ORAL PRN (19:02)
--- NOTE | 2019-11-24 19:04 | NUR ---
NURSE NOTES: medicated with norco 10/325 po for left foot pain. will cont to monitor.
--- NOTE | 2019-11-24 19:21 | NUR ---
HAND-OFF: Report given to Efraín.
--- NOTE | 2019-11-24 19:23 | NUR ---
NURSE NOTES: Received patient from ROSELIA Dove. Rounding is done with Petty. Patient is a/o x4, in bed and able to known his needs. No c/o pain or any distress at this time. Lt lower leg is swollen and dry scab on the amputated foot. Elevated leg with pillow. IV site is intact and patent. IVF is running well. Bed in on alarm, locked, lowest position. Call light is within reach. Will continue to monitor.
[2019-11-24 20:00] VITALS: BP 112/69
[2019-11-25] VITALS: BP 125/64
[2019-11-25 04:00] VITALS: BP 119/77
[2019-11-25] MEDS: Vancomycin 1 GM in NS 275 ML IVPB SCH ×3 (04:04→20:33)
[2019-11-25 04:17] LABS: BASOPHILS % (AUTO) 1.3 % (0.0-2.0); EOSINOPHILS % (AUTO) 5.2 % (0.0-3.0); HEMATOCRIT 32.5 % (42.0-52.0); HEMOGLOBIN 11.2 G/DL (14.2-18.0); LYMPHOCYTES % (AUTO) 32.7 % (20.0-45.0); MEAN CORPUSCULAR VOLUME 91 FL (80-99); NEUTROPHILS % (AUTO) 52.7 % (45.0-75.0); PLATELET COUNT 273 K/UL (150-450); RED BLOOD COUNT 3.58 M/UL (4.70-6.10); RED CELL DISTRIBUTION WIDTH 10.5 % (11.6-14.8); WHITE BLOOD COUNT 6.1 K/UL (4.8-10.8)
[2019-11-25 04:35] LABS: ALANINE AMINOTRANSFERASE 22 U/L (12-78); ALBUMIN 2.7 G/DL (3.4-5.0); ALBUMIN/GLOBULIN RATIO 0.7 (1.0-2.7); ALKALINE PHOSPHATASE 90 U/L (46-116); ANION GAP 4 mmol/L (5-15); ASPARTATE AMINO TRANSFERASE 13 U/L (15-37); BILIRUBIN,TOTAL 0.2 MG/DL (0.2-1.0); BLOOD UREA NITROGEN 13 mg/dL (7-18); CALCIUM 8.1 MG/DL (8.5-10.1); CARBON DIOXIDE 29 MMOL/L (21-32); CHLORIDE 108 MMOL/L (98-107); POTASSIUM 4.6 MMOL/L (3.5-5.1); SODIUM 141 MMOL/L (136-145)
[2019-11-25] MEDS: Piperacillin/Tazobactam 3.375 GM in NS 110 ML IVPB SCH ×3 (06:53→22:50)
[2019-11-25] MEDS: NovoLOG Insulin Flexpen SUBQ SCH ×4 (06:54→20:34)
--- NOTE | 2019-11-25 07:30 | NUR ---
NURSE NOTES: Patient is in bed awake and able to verbalize needs. Stable. Denies pain or SOB at this time. Patient encouraged to use call light for assistance, verbalized understanding. Patient is in bed in locked and lowest position with call light within reach. All needs met at this time. Will continue to monitor.
--- NOTE | 2019-11-25 07:33 | NUR ---
hand off: Given to Yue KU.
[2019-11-25 08:00] VITALS: BP 126/72
--- NOTE | 2019-11-25 10:19 | Surgery Progress Note ---
Surgery Progress Note Subjective Additional Comments doing well MRI noted understands care plan Objective Last 24 Hour Vital Signs Date Time Temp Pulse Resp B/P (MAP) Pulse Ox O2 Delivery O2 Flow Rate FiO2 11/25/19 09:00 Room Air 11/25/19 08:00 97.7 71 18 126/72 (90) 9 11/25/19 04:00 97.9 68 17 119/77 (91) 98 11/25/19 00:00 98.1 76 16 125/64 (84) 98 11/24/19 21:00 Room Air 11/24/19 20:00 97.9 81 16 112/69 (83) 97 11/24/19 16:04 97.9 73 18 134/76 (95) 99 11/24/19 12:00 98.7 74 18 118/70 (86) 99 I&O Intake and Output 11/24/19 11/25/19 19:00 07:00 Intake Total 1787.5 ml 785.0 ml Output Total 1200 ml Balance 587.5 ml 785.0 ml Intake Oral 1480 ml IV Total 307.5 ml 785.0 ml Output Urine Total 1200 ml Dressing: saturated Wound: other Drains: other Cardiovascular: RSR Respiratory: decreased breath sounds Abdomen: soft, present bowel sounds Extremities: no cyanosis, other Laboratory Tests Test 11/24/19 15:30 11/25/19 04:04 Prothrombin Time 10.0 SEC (9.30-11.50) Prothromb Time International Ratio 0.9 (0.9-1.1) Activated Partial Thromboplast Time 36 SEC (23-33) H White Blood Count 6.1 K/UL (4.8-10.8) Red Blood Count 3.58 M/UL (4.70-6.10) L Hemoglobin 11.2 G/DL (14.2-18.0) L Hematocrit 32.5 % (42.0-52.0) L Mean Corpuscular Volume 91 FL (80-99) Mean Corpuscular Hemoglobin 31.4 PG (27.0-31.0) H Mean Corpuscular Hemoglobin Concent 34.6 G/DL (32.0-36.0) Red Cell Distribution Width 10.5 % (11.6-14.8) L Platelet Count 273 K/UL (150-450) Mean Platelet Volume 6.5 FL (6.5-10.1) Neutrophils (%) (Auto) 52.7 % (45.0-75.0) Lymphocytes (%) (Auto) 32.7 % (20.0-45.0) Monocytes (%) (Auto) 8.0 % (1.0-10.0) Eosinophils (%) (Auto) 5.2 % (0.0-3.0) H Basophils (%) (Auto) 1.3 % (0.0-2.0) Erythrocyte Sedimentation Rate 62 MM/HR (0-20) H Sodium Level 141 MMOL/L (136-145) Potassium Level 4.6 MMOL/L (3.5-5.1) Chloride Level 108 MMOL/L (98-107) H Carbon Dioxide Level 29 MMOL/L (21-32) Anion Gap 4 mmol/L (5-15) L Blood Urea Nitrogen 13 mg/dL (7-18) Creatinine 1.0 MG/DL (0.55-1.30) Estimat Glomerular Filtration Rate > 60 mL/min (>60) Glucose Level 136 MG/DL (74-106) H Calcium Level 8.1 MG/DL (8.5-10.1) L Total Bilirubin 0.2 MG/DL (0.2-1.0) Aspartate Amino Transf (AST/SGOT) 13 U/L (15-37) L Alanine Aminotransferase (ALT/SGPT) 22 U/L (12-78) Alkaline Phosphatase 90 U/L (46-116) Total Protein 6.8 G/DL (6.4-8.2) Albumin 2.7 G/DL (3.4-5.0) L Globulin 4.1 g/dL Albumin/Globulin Ratio 0.7 (1.0-2.7) L Vancomycin Level Trough 8.5 ug/mL (5.0-12.0) Plan Problems: (1) Osteomyelitis Assessment & Plan: Osteomyelitis left foot fourth ray history of prior on the fifth ray status post amputation Labs noted MRI as below Seen by podiatry plan for amputation which patient is amenable to - OR thursday Continue with local wound care and antibiotics cellulitis There is evidence of erosion of the fourth proximal and distal phalange presumably on the basis of acute osteomyelitis. Correlate clinically. Patient has had prior amputation at the base of the fifth metatarsal. There is a well-corticated periarticular erosion on the medial side of the first interphalangeal joint. Similar finding in the medial side of the second proximal interphalangeal joint also noted. The nature of these lesions is unknown but the incidental obviously and may be due to inflammatory arthritis. Correlate clinically. IMPRESSION: Extensive erosion of the middle and distal phalanges of the fourth toe suspicious for acute osteomyelitis. Correlate clinically. Scattered periarticular erosions. Consider inflammatory arthritis Findings are highly suspicious for osteomyelitis of the fourth proximal, middle, and distal phalanges. STIR signal abnormality and subtle T1 signal abnormality of the first metatarsal head and neck, suspicious but not conclusive for acute osteomyelitis Abnormal increased STIR and decreased T1 signal within the medial first metatarsal sesamoid, suspicious for osteomyelitis versus injury of this bone Slightly increased her signal in the third metatarsal shaft and neck, with only equivocal minimal T1 signal abnormality. Slightly increased STIR signal within the third proximal phalanx without T1 signal abnormality This could represent reactive changes versus very early osteomyelitis changes Soft tissue changes, as described. Given stated clinical history, most likely on the basis of cellulitis. Edema of hemodynamic origin also possible. No definite drainable abscess demonstrated (2) Diabetic foot ulcer (3) Cellulitis Assessment & Plan: Left foot cellulitis secondary to infection and abscess of the fourth ray Antibiotics as per infectious disease Podiatry eval Plan for surgery with podiatry once imaging available Thank you for let me participate patient's care will follow with recommendations Matthew Loera Nov 25, 2019 10:19
[2019-11-25] MEDS: Enoxaparin 40mg Inj SUBQ SCH (10:27)
[2019-11-25] MEDS: HYDROcodone/Acetamin 5/325 tab ORAL PRN (10:37)
[2019-11-25 11:55] VITALS: BP 116/72
--- NOTE | 2019-11-25 12:03 | General Progress Note ---
Assessment/Plan Problem List: (1) Osteomyelitis ICD Codes: M86.9 - Osteomyelitis, unspecified SNOMED: 10546780, 66097325 (2) Diabetic foot ulcer ICD Codes: E11.621 - Type 2 diabetes mellitus with foot ulcer; L97.509 - Non- pressure chronic ulcer of other part of unspecified foot with unspecified severity SNOMED: 358297806, 42938395 (3) Uncontrolled diabetes mellitus ICD Codes: E11.65 - Type 2 diabetes mellitus with hyperglycemia SNOMED: 56280751, 765280383 Status: stable Assessment/Plan: 54 year old male with uncontrolled DM, medication non compliance, prior multiple amputations presents with left 4th toe infection. #Osteomyelitis of the left fourth toe. #Diabetic foot ulcer, left foot. #Type 2 diabetes mellitus with peripheral neuropathy. #History of healed partial fifth ray amputations, bilateral. #Medication non compliance Med surg IV zosyn and vancomycin, wound and blood cultures ID and podiatry consults MRI left foot glycemic control, insulin ordered. keep glucose 140-180 range Check hemoglobin A1c # ?Depression Denies suicidal ideation, will obtains psychiatry consult with Dr. Templeton I spent 40 minutes on this encounter. Greater than 50% spent in counseling and care coordination. Case discussed with ID and podiatry. Plan of care discussed with patient. Time of note may not reflect time of encounter. Subjective Date patient seen: Nov 25, 2019 ROS Limited/Unobtainable: No Constitutional: Denies: no symptoms, chills, diaphoresis, fever, malaise, weakness, other HEENT: Denies: no symptoms, eye pain, blurred vision, tearing, double vision, ear pain, ear discharge, nose pain, nose congestion, throat pain, throat swelling, mouth pain, mouth swelling, other Cardiovascular: Denies: no symptoms, chest pain, edema, irregular heart rate, lightheadedness, palpitations, syncope, other Respiratory: Denies: no symptoms, cough, orthopnea, shortness of breath, SOB with excertion, SOB at rest, sputum, stridor, wheezing, other Gastrointestinal/Abdominal: Denies: no symptoms, abdomen distended, abdominal pain, black stools, tarry stools, blood in stool, constipated, diarrhea, difficulty swallowing, nausea, poor appetite, poor fluid intake, rectal bleeding , vomiting, other Genitourinary: Denies: no symptoms, burning, discharge, frequency, flank pain, hematuria, incontinence, pain, urgency, other Neurologic/Psychiatric: Denies: no symptoms, anxiety, depressed, emotional problems, headache, numbness, paresthesia, pre-existing deficit, seizure, tingling, tremors, weakness, other Endocrine: Denies: no symptoms, excessive sweating, flushing, intolerance to cold, intolerance to heat, increased hunger, increased thirst, increased urine, unexplained weight gain, unexplained weight loss, other Hematologic/Lymphatic: Denies: no symptoms, anemia, easy bleeding, easy bruising, other Allergies: Coded Allergies: No Known Allergies (Unverified , 11/23/19) Subjective Following up for left fourth toe diabetic foot infection. No acute events overnight. Glucose under relatively good control. Seen by ID and podiatry. Objective Last 24 Hour Vital Signs Date Time Temp Pulse Resp B/P (MAP) Pulse Ox O2 Delivery O2 Flow Rate FiO2 11/25/19 09:00 Room Air 11/25/19 08:00 97.7 71 18 126/72 (90) 9 11/25/19 04:00 97.9 68 17 119/77 (91) 98 11/25/19 00:00 98.1 76 16 125/64 (84) 98 11/24/19 21:00 Room Air 11/24/19 20:00 97.9 81 16 112/69 (83) 97 11/24/19 16:04 97.9 73 18 134/76 (95) 99 Intake and Output 11/24/19 11/25/19 18:59 06:59 Intake Total 1815.0 ml 785.0 ml Output Total 1200 ml Balance 615.0 ml 785.0 ml Intake Oral 1480 ml IV Total 335.0 ml 785.0 ml Output Urine Total 1200 ml Laboratory Tests 11/24/19 15:30: Prothrombin Time 10.0, Prothromb Time International Ratio 0.9, Activated Partial Thromboplast Time 36H 11/25/19 04:04: White Blood Count 6.1, Red Blood Count 3.58L, Hemoglobin 11.2L, Hematocrit 32.5L , Mean Corpuscular Volume 91, Mean Corpuscular Hemoglobin 31.4H, Mean Corpuscular Hemoglobin Concent 34.6, Red Cell Distribution Width 10.5L, Platelet Count 273, Mean Platelet Volume 6.5, Neutrophils (%) (Auto) 52.7, Lymphocytes (%) (Auto) 32.7, Monocytes (%) (Auto) 8.0, Eosinophils (%) (Auto) 5.2H, Basophils (%) (Auto) 1.3, Erythrocyte Sedimentation Rate 62H, Sodium Level 141, Potassium Level 4.6, Chloride Level 108H, Carbon Dioxide Level 29, Anion Gap 4L, Blood Urea Nitrogen 13, Creatinine 1.0, Estimat Glomerular Filtration Rate > 60, Glucose Level 136H, Calcium Level 8.1L, Total Bilirubin 0.2, Aspartate Amino Transf (AST/SGOT) 13L, Alanine Aminotransferase (ALT/SGPT) 22, Alkaline Phosphatase 90, Total Protein 6.8, Albumin 2.7L, Globulin 4.1, Albumin/Globulin Ratio 0.7L, Vancomycin Level Trough 8.5 Height (Feet): 5 Height (Inches): 8.00 Weight (Pounds): 165 Objective General Appearance: no apparent distress Lines, tubes and drains: peripheral HEENT: normocephalic, atraumatic, anicteric Neck: non-tender, normal alignment, supple Respiratory/Chest: chest wall non-tender, lungs clear, normal breath sounds Cardiovascular/Chest: normal peripheral pulses, normal rate, regular rhythm, no gallop/murmur, no JVD Abdomen: normal bowel sounds, non tender, soft, no organomegaly Extremities: other Skin Exam: other - full-thickness ulceration noted on the lateral aspect of the left fourth toe. There is scant serous drainage noted from the site. No malodor is noted. Skin is erythematous. No bone or tendon exposed. Surgical incision sites from previous surgeries bilateral are healed. 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 Nov 25, 2019 12:03
--- NOTE | 2019-11-25 13:00 | Anethesia Preoperative Eval ---
Anesthesia Pre-op PMH/ROS General Date of Evaluation: Nov 25, 2019 Anesthesiologist: Hali ASA Score: ASA 3 Mallampati Score Class I : Soft palate, uvula, fauces, pillars visible Class II: Soft palate, uvula, fauces visible Class III: Soft palate, base of uvula visible Class IV: Only hard plate visible Mallampati Classification: Class II Surgeon: Vidhi Diagnosis: L 4th Toe Gangrene Surgical Procedure: L 4th Toe Amputation Anesthesia History: none Family History: no anesthesia problems Allergies: Coded Allergies: No Known Allergies (Unverified , 11/23/19) Medications: see eMAR Patient NPO?: Yes Past Medical History Cardiovascular: Reports: HTN Neurologic/Psychiatric: Reports: depression/anxiety Endocrine: Reports: DM Hematology/Immune: Reports: anemia Musculoskeletal/Integumentary: Reports: other - Osteomyelitis Anesthesia Pre-op Phys. Exam Physician Exam Last Vital Signs Date Time Temp Pulse Resp B/P (MAP) Pulse Ox O2 Delivery O2 Flow Rate FiO2 11/25/19 11:55 97.8 72 18 116/72 (87) 99 11/25/19 09:00 Room Air Constitutional: NAD Neurologic: CN 2-12 intact Cardiovascular: RRR Respiratory: CTA Gastrointestinal: S/NT/ND Airway Exam Mallampati Score: Class II MO: full ROM: full Teeth: missing, intact Anesthesia Pre-op A/P Labs Hematology Test 11/25/19 04:04 White Blood Count 6.1 K/UL (4.8-10.8) Red Blood Count 3.58 M/UL (4.70-6.10) L Hemoglobin 11.2 G/DL (14.2-18.0) L Hematocrit 32.5 % (42.0-52.0) L Mean Corpuscular Volume 91 FL (80-99) Mean Corpuscular Hemoglobin 31.4 PG (27.0-31.0) H Mean Corpuscular Hemoglobin Concent 34.6 G/DL (32.0-36.0) Red Cell Distribution Width 10.5 % (11.6-14.8) L Platelet Count 273 K/UL (150-450) Mean Platelet Volume 6.5 FL (6.5-10.1) Neutrophils (%) (Auto) 52.7 % (45.0-75.0) Lymphocytes (%) (Auto) 32.7 % (20.0-45.0) Monocytes (%) (Auto) 8.0 % (1.0-10.0) Eosinophils (%) (Auto) 5.2 % (0.0-3.0) H Basophils (%) (Auto) 1.3 % (0.0-2.0) Erythrocyte Sedimentation Rate 62 MM/HR (0-20) H Coagulation Test 11/24/19 15:30 Prothrombin Time 10.0 SEC (9.30-11.50) Prothromb Time International Ratio 0.9 (0.9-1.1) Activated Partial Thromboplast Time 36 SEC (23-33) H Chemistry Test 11/25/19 04:04 Sodium Level 141 MMOL/L (136-145) Potassium Level 4.6 MMOL/L (3.5-5.1) Chloride Level 108 MMOL/L (98-107) H Carbon Dioxide Level 29 MMOL/L (21-32) Anion Gap 4 mmol/L (5-15) L Blood Urea Nitrogen 13 mg/dL (7-18) Creatinine 1.0 MG/DL (0.55-1.30) Estimat Glomerular Filtration Rate > 60 mL/min (>60) Glucose Level 136 MG/DL (74-106) H Calcium Level 8.1 MG/DL (8.5-10.1) L Total Bilirubin 0.2 MG/DL (0.2-1.0) Aspartate Amino Transf (AST/SGOT) 13 U/L (15-37) L Alanine Aminotransferase (ALT/SGPT) 22 U/L (12-78) Alkaline Phosphatase 90 U/L (46-116) Total Protein 6.8 G/DL (6.4-8.2) Albumin 2.7 G/DL (3.4-5.0) L Globulin 4.1 g/dL Albumin/Globulin Ratio 0.7 (1.0-2.7) L Risk Assessment & Plan Assessment: ASA 3 Plan: GA Status Change Before Surgery: No Pre-Antibiotics Drug: Lazarus Garcia MD Nov 25, 2019 13:00
[2019-11-25 16:00] VITALS: BP 138/79
[2019-11-25] MEDS ORDERED: Magnesium Citrate Liq Btl ORAL PRN (16:00)
--- NOTE | 2019-11-25 19:43 | NUR ---
HAND-OFF: Report given to ELMIRA Baum.
--- NOTE | 2019-11-25 19:44 | NUR ---
NURSE NOTES: Received patient from ELMIRA Miranda. Rounding is done with outgoing nurse. Patient is a/o x4, in bed and able to known his needs. No c/o pain or any distress at this time. Lt lower leg is swollen and dry scab on the amputated foot. Elevated leg with pillow. IV site is intact and patent. IVF is running well. Bed in on alarm, locked, lowest position. Call light is within reach. Will continue to monitor.
--- NOTE | 2019-11-25 19:50 | Infectious Diseases Prog Note ---
Assessment/Plan Assessment/Plan Full consult dictated: A) 1) left foot 4th toe osteomyelitis/wound infection/cellulitis - wound culture with staph aureus 2) pmh noted 3) allergies - nkda P) 1) zosyn and vancomycin 2) check final wound culture, monitor labs 3) surgery per podiatry 4) will f/u Subjective Constitutional: Denies: fever HEENT: Denies: congestion Cardiovascular: Denies: chest pain Gastrointestinal/Abdominal: Denies: nausea, vomiting Allergies: Coded Allergies: No Known Allergies (Unverified , 11/23/19) Objective Vital Signs Last 24 Hour Vital Signs Date Time Temp Pulse Resp B/P (MAP) Pulse Ox O2 Delivery O2 Flow Rate FiO2 11/25/19 16:00 98.4 78 18 138/79 (98) 99 11/25/19 11:55 97.8 72 18 116/72 (87) 99 11/25/19 09:00 Room Air 11/25/19 08:00 97.7 71 18 126/72 (90) 9 11/25/19 04:00 97.9 68 17 119/77 (91) 98 11/25/19 00:00 98.1 76 16 125/64 (84) 98 11/24/19 21:00 Room Air 11/24/19 20:00 97.9 81 16 112/69 (83) 97 Height (Feet): 5 Height (Inches): 8.00 Weight (Pounds): 165 General Appearance: no acute distress HEENT: normocephalic, atraumatic, anicteric Respiratory/Chest: lungs clear, normal breath sounds, no respiratory distress Cardiovascular: normal rate, regular rhythm, regularly irregular Microbiology Date/Time Source Procedure Growth Status 11/24/19 18:00 Toe Left Fourth Gram Stain - Final Resulted 11/24/19 18:00 Wound Culture - Preliminary Staphylococcus Aureus Resulted 11/23/19 20:45 Rectum Received Laboratory Tests Test 11/25/19 04:04 White Blood Count 6.1 K/UL (4.8-10.8) Red Blood Count 3.58 M/UL (4.70-6.10) L Hemoglobin 11.2 G/DL (14.2-18.0) L Hematocrit 32.5 % (42.0-52.0) L Mean Corpuscular Volume 91 FL (80-99) Mean Corpuscular Hemoglobin 31.4 PG (27.0-31.0) H Mean Corpuscular Hemoglobin Concent 34.6 G/DL (32.0-36.0) Red Cell Distribution Width 10.5 % (11.6-14.8) L Platelet Count 273 K/UL (150-450) Mean Platelet Volume 6.5 FL (6.5-10.1) Neutrophils (%) (Auto) 52.7 % (45.0-75.0) Lymphocytes (%) (Auto) 32.7 % (20.0-45.0) Monocytes (%) (Auto) 8.0 % (1.0-10.0) Eosinophils (%) (Auto) 5.2 % (0.0-3.0) H Basophils (%) (Auto) 1.3 % (0.0-2.0) Erythrocyte Sedimentation Rate 62 MM/HR (0-20) H Sodium Level 141 MMOL/L (136-145) Potassium Level 4.6 MMOL/L (3.5-5.1) Chloride Level 108 MMOL/L (98-107) H Carbon Dioxide Level 29 MMOL/L (21-32) Anion Gap 4 mmol/L (5-15) L Blood Urea Nitrogen 13 mg/dL (7-18) Creatinine 1.0 MG/DL (0.55-1.30) Estimat Glomerular Filtration Rate > 60 mL/min (>60) Glucose Level 136 MG/DL (74-106) H Calcium Level 8.1 MG/DL (8.5-10.1) L Total Bilirubin 0.2 MG/DL (0.2-1.0) Aspartate Amino Transf (AST/SGOT) 13 U/L (15-37) L Alanine Aminotransferase (ALT/SGPT) 22 U/L (12-78) Alkaline Phosphatase 90 U/L (46-116) Total Protein 6.8 G/DL (6.4-8.2) Albumin 2.7 G/DL (3.4-5.0) L Globulin 4.1 g/dL Albumin/Globulin Ratio 0.7 (1.0-2.7) L Vancomycin Level Trough 8.5 ug/mL (5.0-12.0) Current Medications Medications (Trade) Dose Ordered Sig/Isela Route PRN Reason Start Time Stop Time Status Last Admin Dose Admin Acetaminophen (Tylenol) 650 mg Q6H PRN ORAL Mild Pain/Temp > 100.5 11/24/19 03:30 12/24/19 03:29 Acetaminophen/ Hydrocodone Bitart (Diamond 10/325) 1 tab Q6H PRN ORAL Severe Pain (Pain Scale 7-10) 11/24/19 03:30 12/01/19 03:29 11/24/19 19:02 Acetaminophen/ Hydrocodone Bitart (Diamond 5/325) 1 tab Q6H PRN ORAL Moderate Pain (Pain Scale 4-6) 11/24/19 03:30 12/01/19 03:29 11/25/19 10:37 Dextrose (Dextrose 50%) 25 ml Q30M PRN IV Hypoglycemia 11/24/19 04:00 12/24/19 03:59 Dextrose (Dextrose 50%) 50 ml Q30M PRN IV Hypoglycemia 11/24/19 04:00 12/24/19 03:59 Enoxaparin Sodium (Lovenox) 40 mg DAILY SUBQ 11/24/19 09:00 12/24/19 08:59 11/25/19 10:27 Escitalopram Oxalate (Lexapro) 10 mg DAILY ORAL 11/25/19 16:30 12/25/19 16:29 11/25/19 16:46 Insulin Aspart (NovoLOG) BEFORE MEALS AND HS SUBQ 11/24/19 06:30 12/24/19 06:29 11/25/19 06:54 Lorazepam (Ativan) 1 mg Q6H PRN ORAL For Anxiety 11/25/19 16:30 12/02/19 16:29 Magnesium Citrate (Citrate Of Magnesia) 300 ml ONCE PRN ORAL constipation 11/25/19 16:00 11/26/19 15:59 Mirtazapine (Remeron) 7.5 mg BEDTIME ORAL 11/25/19 21:00 12/25/19 20:59 Ondansetron HCl (Zofran) 4 mg Q4H PRN IVP Nausea & Vomiting 11/24/19 03:30 12/24/19 03:29 Piperacillin Sod/ Tazobactam Sod 3.375 gm/Sodium Chloride 110 ml @ 27.5 mls/hr EVERY 8 HOURS IVPB 11/24/19 06:00 11/29/19 05:59 11/25/19 14:30 Vancomycin HCl (Vanco rx to dose) 1 ea DAILY MISC 11/24/19 09:00 12/24/19 08:59 Vancomycin HCl 1 gm/Sodium Chloride 275 ml @ 183.708 mls/hr Q8H IVPB 11/25/19 12:00 11/29/19 16:59 11/25/19 12:02 Martha Fuller MD Nov 25, 2019 19:50
--- NOTE | 2019-11-25 21:30 | Consultation ---
DATE OF CONSULTATION: 11/25/2019 INFECTIOUS DISEASE CONSULTATION CONSULTING PHYSICIAN: Martha Fuller M.D. ATTENDING PHYSICIAN: Juan M Khan M.D. REFERRING PHYSICIAN: Tam Garcia M.D. REASON FOR CONSULTATION: Left foot fourth toe osteo, infected wound, and cellulitis. CHIEF COMPLAINT: The patient's chief complaint coming to the hospital is left foot fourth toe cellulitis and osteo and infected wound. HISTORY OF PRESENT ILLNESS: This is a very pleasant 54-year-old male who comes in to [facility] with cellulitis of the left foot and fourth toe. The patient has on MRI osteo of the left foot fourth toe and has infected wound and ulcer with cellulitis. The patient was seen by Podiatry and the patient wanted to proceed with surgical intervention, which could be mean debridement or amputation. The patient is currently on vancomycin and Zosyn for polymicrobial coverage of his left foot fourth toe infected wound and ulcer and cellulitis and osteo. Sedimentation rate is 62. Wound culture with Staph aureus so far. The patient will be continued on vancomycin and Zosyn for now. MAR was noted. Orders were noted. Notes and records were reviewed. Case was discussed with Dr. Garcia from primary care team. REVIEW OF SYSTEMS: CONSTITUTIONAL: The patient has no fever, chills, night sweats, or weight loss. HEAD AND NECK: No head pain or neck pain. No headache or neck stiffness. No dysphagia or thrush. CARDIAC: No chest pain or palpitations. GASTROINTESTINAL: No nausea, vomiting, or diarrhea. GENITOURINARY: No dysuria or frequency. PULMONARY: No congestion or shortness of breath. SKIN: No rash or itching. EXTREMITIES: Has left foot fourth toe pain. NEUROLOGIC: No seizures. Denies fatigue. No focal weakness. PAST MEDICAL HISTORY: Diabetes and bilateral fifth toe amputation. Other past medical history includes hypertension and also depression it looks like. ALLERGIES: No known drug allergies. No antibiotic allergies. SOCIAL HISTORY: Negative for smoking, alcohol, or drug abuse. FAMILY HISTORY: Noncontributory. Negative for tuberculosis or cancer. MEDICATIONS: Upon reviewing the MAR, he is on following medications. He is on mirtazapine. He is on Lexapro, Ativan, magnesium citrate, Vanco, Zosyn, enoxaparin, insulin, Zofran, hydrocodone, acetaminophen. Outside medications noted and reconciliated. Antibiotics, Vanco and Zosyn. PHYSICAL EXAMINATION: VITAL SIGNS: Temperature is 98.4, pulse rate 78, respiratory rate 18, blood pressure 130/79, saturation 99%. GENERAL: Alert, responsive, no acute distress. Oriented x3. HEAD AND NECK: Oral exam, no thrush. Eye exam, no icterus. Normocephalic. Neck is supple. No JVD. HEART: Regular. No gallop or murmurs. ABDOMEN: Soft. Positive bowel sounds. Nontender. LUNGS: Clear bilaterally. No rhonchi or rales. SKIN: No rash. MUSCULOSKELETAL: No effusion. Legs are without cellulitis. PERIPHERAL VASCULAR: No gangrene. His left foot fourth toe has some drainage, maybe mild swelling. GENITOURINARY: No Stewart. LINE SITES: Without phlebitis. NEUROLOGIC: Intact. Alert and oriented x3. LABORATORY DATA: Creatinine 1.0. White count 6.1, hemoglobin 11.2. Sedimentation rate 62. Wound culture, left foot fourth toe has Staph aureus, sensitivities are pending, final cultures pending. MRI of the left foot shows findings concerning for left foot fourth toe osteomyelitis. ASSESSMENT AND PLAN: 1. The patient has left foot fourth toe infected wound and ulcer secondary to Staph aureus, likely polymicrobial infection. MRI is consistent with osteo left foot fourth toe. The patient has cellulitis. At this time, continue Vanco and Zosyn for Staph aureus and polymicrobial coverage. Continue Vanco and Zosyn for Staph aureus and likely polymicrobial left foot fourth toe infected wound and ulcer with osteo and cellulitis. The patient to undergo surgical intervention per the records, possible debridement and possible amputation. The patient may eventually need long-term antibiotics depending on surgical margins and surgical findings. Continue Vanco and Zosyn for now. 2. The patient has history of hypertension. 3. Diabetes. 4. Blood sugar, blood pressure treatment per primary care team for diabetes, hypertension. 5. Depression. 6. History of bilateral foot fifth toe amputation. 7. No known allergies. 8. Social history negative. 9. Family history is noncontributory. 10. MAR was noted. 11. Case was discussed with RN. 12. Case was discussed with the patient. 13. Case was discussed with Dr. Garcia. 14. Continue treatment per primary consultants. 15. Orders were noted and entered. Martha Fuller M.D. DR: HARESH JOB#: [id number] CC:
--- NOTE | 2019-11-25 22:00 | NUR ---
Hand off: Given to Saran KU.
[2019-11-25] MEDS: HYDROcodone/Acetamin 10/325 tab ORAL PRN (23:50)
[2019-11-26] VITALS: BP 146/79
--- NOTE | 2019-11-26 03:13 | NUR ---
HAND-OFF: Report given to ELMIRA Yuen. Pt transferred to due to MRSA wound
[2019-11-26] MEDS: Vancomycin 1 GM in NS 275 ML IVPB SCH ×3 (03:34→19:40)
[2019-11-26 04:43] VITALS: BP 127/72
[2019-11-26] MEDS: Piperacillin/Tazobactam 3.375 GM in NS 110 ML IVPB SCH ×3 (05:03→21:11)
[2019-11-26] MEDS: NovoLOG Insulin Flexpen SUBQ SCH ×4 (05:55→21:12)
[2019-11-26 06:55] LABS: BASOPHILS % (AUTO) 1.6 % (0.0-2.0); EOSINOPHILS % (AUTO) 6.6 % (0.0-3.0); HEMATOCRIT 31.3 % (42.0-52.0); LYMPHOCYTES % (AUTO) 30.4 % (20.0-45.0); MEAN CORPUSCULAR VOLUME 92 FL (80-99); MONOCYTES % (AUTO) 7.3 % (1.0-10.0); NEUTROPHILS % (AUTO) 54.1 % (45.0-75.0); PLATELET COUNT 300 K/UL (150-450); RED BLOOD COUNT 3.41 M/UL (4.70-6.10); RED CELL DISTRIBUTION WIDTH 10.4 % (11.6-14.8); WHITE BLOOD COUNT 6.6 K/UL (4.8-10.8)
[2019-11-26 07:11] LABS: ANION GAP 8 mmol/L (5-15); BLOOD UREA NITROGEN 16 mg/dL (7-18); CARBON DIOXIDE 27 MMOL/L (21-32); CHLORIDE 106 MMOL/L (98-107); CREATININE 0.9 MG/DL (0.55-1.30); POTASSIUM 4.1 MMOL/L (3.5-5.1); SODIUM 141 MMOL/L (136-145)
--- NOTE | 2019-11-26 07:16 | NUR ---
HAND-OFF: Report given to Kai Rodriguez RN.
--- NOTE | 2019-11-26 07:17 | NUR ---
NURSE NOTES: Report received from Alpa KU. Patient is awake and alert x 4 sitting in fowlers position in bed eating breakfast. Patient noted to have dressing on right foot. No evidence of drainage at this time. Dressing dry, clean and in tact. 18 jourdan IV noted in right forearm. Patent and in tact. Patient has no complaints at this time. Call light within reach. Will continue to follow plan of care.
--- NOTE | 2019-11-26 07:51 | Podiatric Progress Note ---
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 Suspicious for OM, Sed rate marginal. Discussed findings with patient and we agreed to proceed with conservative treatment at this time. If wound does not respond, will bring back as outpatient and perform toe amp. Patient is homeless. Will need SNF placement. Will consult case management. 2) Wound care - continued as ordered 3) Electronic Bench Technician consult for DM shoes - pending 4) Abx per ID Subjective Allergies: Coded Allergies: No Known Allergies (Unverified , 11/23/19) Subjective Patient is resting comfortably Objective Exam Last 24 Hour Vital Signs Date Time Temp Pulse Resp B/P (MAP) Pulse Ox O2 Delivery O2 Flow Rate FiO2 11/26/19 04:43 97.6 64 21 127/72 (90) 99 11/26/19 00:00 98.4 83 18 146/79 (101) 11/25/19 21:00 Room Air 11/25/19 16:00 98.4 78 18 138/79 (98) 99 11/25/19 11:55 97.8 72 18 116/72 (87) 99 11/25/19 09:00 Room Air 11/25/19 08:00 97.7 71 18 126/72 (90) 9 Laboratory Tests Test 11/26/19 06:15 White Blood Count 6.6 K/UL (4.8-10.8) Red Blood Count 3.41 M/UL (4.70-6.10) L Hemoglobin 11.0 G/DL (14.2-18.0) L Hematocrit 31.3 % (42.0-52.0) L Mean Corpuscular Volume 92 FL (80-99) Mean Corpuscular Hemoglobin 32.2 PG (27.0-31.0) H Mean Corpuscular Hemoglobin Concent 35.2 G/DL (32.0-36.0) Red Cell Distribution Width 10.4 % (11.6-14.8) L Platelet Count 300 K/UL (150-450) Mean Platelet Volume 6.5 FL (6.5-10.1) Neutrophils (%) (Auto) 54.1 % (45.0-75.0) Lymphocytes (%) (Auto) 30.4 % (20.0-45.0) Monocytes (%) (Auto) 7.3 % (1.0-10.0) Eosinophils (%) (Auto) 6.6 % (0.0-3.0) H Basophils (%) (Auto) 1.6 % (0.0-2.0) Sodium Level 141 MMOL/L (136-145) Potassium Level 4.1 MMOL/L (3.5-5.1) Chloride Level 106 MMOL/L (98-107) Carbon Dioxide Level 27 MMOL/L (21-32) Anion Gap 8 mmol/L (5-15) Blood Urea Nitrogen 16 mg/dL (7-18) Creatinine 0.9 MG/DL (0.55-1.30) Estimat Glomerular Filtration Rate > 60 mL/min (>60) Glucose Level 127 MG/DL (74-106) H Hemoglobin A1c 7.7 % (4.3-6.0) H Calcium Level 8.0 MG/DL (8.5-10.1) L Microbiology Date/Time Source Procedure Growth Status 11/24/19 18:00 Toe Left Fourth Gram Stain - Final Complete 11/24/19 18:00 Wound Culture - Final Staphylococcus Aureus - Mrsa Complete Musculoskeletal Musculoskeletal Procedure: MRI Left Foot WO Contrast Indication: Left fourth toe open wound, prior history of fifth toe amputation Technique: Sagittal, axial, coronal T1 fast spin echo and FSE STIR images were obtained of the forefoot Comparison: Toe radiograph 11/23/2019 Findings: Patient is status post amputation of the fifth digit at the level of the midshaft metatarsal. The stump of the fifth metatarsal demonstrates normal marrow signal. Markedly abnormal increased STIR and decreased T1 marrow signal is seen involving the fourth proximal, middle, and distal phalanges T1 images demonstrate evidence of fairly extensive destruction of all 3 bones. Slightly increased STIR signal is seen within the third metatarsal shaft and neck. There is only equivocal minimal T1 signal abnormality. There is also slightly increased STIR signal within the third proximal phalanx without evidence of T1 signal abnormality. The first metatarsal head and neck demonstrate increased STIR signal, with suggestion of slight T1 signal abnormality. No phalangeal signal abnormality demonstrated. There is, however, increased STIR and decreased T1 signal within the medial sesamoid. High STIR signal consistent with edema is seen circumferentially surrounding the second third and fourth digits, and within the dorsum and plantar surface of the foot, predominantly within the superficial fat but also within the plantar side deep muscular tendinous compartment. No discrete fluid collection to suggest abscess is demonstrated. Impression: Findings are highly suspicious for osteomyelitis of the fourth proximal, middle, and distal phalanges. STIR signal abnormality and subtle T1 signal abnormality of the first metatarsal head and neck, suspicious but not conclusive for acute osteomyelitis Abnormal increased STIR and decreased T1 signal within the medial first metatarsal sesamoid, suspicious for osteomyelitis versus injury of this bone Slightly increased her signal in the third metatarsal shaft and neck, with only equivocal minimal T1 signal abnormality. Slightly increased STIR signal within the third proximal phalanx without T1 signal abnormality This could represent reactive changes versus very early osteomyelitis changes Soft tissue changes, as described. Given stated clinical history, most likely on the basis of cellulitis. Edema of hemodynamic origin also possible. No definite drainable abscess demonstrated Dictated By: Rex Lal MD Electronically Signed By: Rex Lal MD Signed Date/Time 11/24/19 1606 Marcio Mosher DPOrville Nov 26, 2019 07:51
[2019-11-26 08:00] VITALS: BP 130/70
[2019-11-26] MEDS: Enoxaparin 40mg Inj SUBQ SCH (09:16)
[2019-11-26] MEDS: HYDROcodone/Acetamin 5/325 tab ORAL PRN (09:23)
[2019-11-26 12:00] VITALS: BP 123/80
--- NOTE | 2019-11-26 12:07 | Surgery Progress Note ---
Surgery Progress Note Subjective Additional Comments no acute events s OR thursday friends at bedside Objective Last 24 Hour Vital Signs Date Time Temp Pulse Resp B/P (MAP) Pulse Ox O2 Delivery O2 Flow Rate FiO2 11/26/19 09:00 Room Air Room Air 11/26/19 08:00 98.0 71 17 130/70 (90) 99 11/26/19 04:43 97.6 64 21 127/72 (90) 99 11/26/19 00:00 98.4 83 18 146/79 (101) 11/25/19 21:00 Room Air 11/25/19 16:00 98.4 78 18 138/79 (98) 99 I&O Intake and Output 11/25/19 11/26/19 19:00 07:00 Intake Total 1550 ml 1080.000 ml Output Total 1200 ml 1200 ml Balance 350 ml -120.000 ml Intake Oral 1550 ml 750 ml IV Total 330.000 ml Output Urine Total 1200 ml 1200 ml # Voids 3 3 Dressing: saturated Cardiovascular: RSR Respiratory: clear Abdomen: soft, flat, non-tender, present bowel sounds Extremities: edema, tenderness, no cyanosis, other Laboratory Tests Test 11/26/19 06:15 White Blood Count 6.6 K/UL (4.8-10.8) Red Blood Count 3.41 M/UL (4.70-6.10) L Hemoglobin 11.0 G/DL (14.2-18.0) L Hematocrit 31.3 % (42.0-52.0) L Mean Corpuscular Volume 92 FL (80-99) Mean Corpuscular Hemoglobin 32.2 PG (27.0-31.0) H Mean Corpuscular Hemoglobin Concent 35.2 G/DL (32.0-36.0) Red Cell Distribution Width 10.4 % (11.6-14.8) L Platelet Count 300 K/UL (150-450) Mean Platelet Volume 6.5 FL (6.5-10.1) Neutrophils (%) (Auto) 54.1 % (45.0-75.0) Lymphocytes (%) (Auto) 30.4 % (20.0-45.0) Monocytes (%) (Auto) 7.3 % (1.0-10.0) Eosinophils (%) (Auto) 6.6 % (0.0-3.0) H Basophils (%) (Auto) 1.6 % (0.0-2.0) Sodium Level 141 MMOL/L (136-145) Potassium Level 4.1 MMOL/L (3.5-5.1) Chloride Level 106 MMOL/L (98-107) Carbon Dioxide Level 27 MMOL/L (21-32) Anion Gap 8 mmol/L (5-15) Blood Urea Nitrogen 16 mg/dL (7-18) Creatinine 0.9 MG/DL (0.55-1.30) Estimat Glomerular Filtration Rate > 60 mL/min (>60) Glucose Level 127 MG/DL (74-106) H Hemoglobin A1c 7.7 % (4.3-6.0) H Calcium Level 8.0 MG/DL (8.5-10.1) L Plan Problems: (1) Osteomyelitis Assessment & Plan: Osteomyelitis left foot fourth ray history of prior on the fifth ray status post amputation Labs noted MRI as below Seen by podiatry plan for amputation which patient is amenable to - OR thursday Continue with local wound care and antibiotics cellulitis There is evidence of erosion of the fourth proximal and distal phalange presumably on the basis of acute osteomyelitis. Correlate clinically. Patient has had prior amputation at the base of the fifth metatarsal. There is a well-corticated periarticular erosion on the medial side of the first interphalangeal joint. Similar finding in the medial side of the second proximal interphalangeal joint also noted. The nature of these lesions is unknown but the incidental obviously and may be due to inflammatory arthritis. Correlate clinically. IMPRESSION: Extensive erosion of the middle and distal phalanges of the fourth toe suspicious for acute osteomyelitis. Correlate clinically. Scattered periarticular erosions. Consider inflammatory arthritis Findings are highly suspicious for osteomyelitis of the fourth proximal, middle, and distal phalanges. STIR signal abnormality and subtle T1 signal abnormality of the first metatarsal head and neck, suspicious but not conclusive for acute osteomyelitis Abnormal increased STIR and decreased T1 signal within the medial first metatarsal sesamoid, suspicious for osteomyelitis versus injury of this bone Slightly increased her signal in the third metatarsal shaft and neck, with only equivocal minimal T1 signal abnormality. Slightly increased STIR signal within the third proximal phalanx without T1 signal abnormality This could represent reactive changes versus very early osteomyelitis changes Soft tissue changes, as described. Given stated clinical history, most likely on the basis of cellulitis. Edema of hemodynamic origin also possible. No definite drainable abscess demonstrated (2) Diabetic foot ulcer (3) Cellulitis Assessment & Plan: Left foot cellulitis secondary to infection and abscess of the fourth ray Antibiotics as per infectious disease Podiatry eval Plan for surgery with podiatry once imaging available Thank you for let me participate patient's care will follow with recommendations Matthew Loera Nov 26, 2019 12:07
[2019-11-26 16:00] VITALS: BP 144/80
--- NOTE | 2019-11-26 19:06 | NUR ---
HAND-OFF: Report given to ELMIRA MOELLER.
[2019-11-26 20:11] VITALS: BP 102/70
--- NOTE | 2019-11-26 20:16 | NUR ---
NURSE NOTES: Received patient awake, alert, verbal, resting in bed, comfortable, no complaints.
--- NOTE | 2019-11-26 20:40 | General Progress Note ---
Assessment/Plan Status: stable Assessment/Plan: 54 year old male with uncontrolled DM, medication non compliance, prior multiple amputations presents with left 4th toe infection. #Osteomyelitis of the left fourth toe. #Diabetic foot ulcer, left foot. #Type 2 diabetes mellitus with peripheral neuropathy. #History of healed partial fifth ray amputations, bilateral. #Medication non compliance Med surg IV zosyn and vancomycin, wound and blood cultures ID and podiatry consults MRI left foot glycemic control, insulin ordered. keep glucose 140-180 range Check hemoglobin A1c # ?Depression Denies suicidal ideation, will obtains psychiatry consult with Dr. Templeton I spent 40 minutes on this encounter. Greater than 50% spent in counseling and care coordination. Case discussed with ID and podiatry. Plan of care discussed with patient. Time of note may not reflect time of encounter. Subjective Date patient seen: Nov 26, 2019 Allergies: Coded Allergies: No Known Allergies (Unverified , 11/23/19) Subjective No acute events, afebrile, tenderness at left toe Objective Last 24 Hour Vital Signs Date Time Temp Pulse Resp B/P (MAP) Pulse Ox O2 Delivery O2 Flow Rate FiO2 11/26/19 20:37 Room Air Room Air 11/26/19 20:11 98.1 82 20 102/70 (81) 96 11/26/19 16:00 98.5 82 17 144/80 (101) 100 11/26/19 12:00 98.1 82 18 123/80 (94) 98 11/26/19 09:00 Room Air Room Air 11/26/19 08:00 98.0 71 17 130/70 (90) 99 11/26/19 04:43 97.6 64 21 127/72 (90) 99 11/26/19 00:00 98.4 83 18 146/79 (101) 11/25/19 21:00 Room Air Intake and Output 11/25/19 11/26/19 19:00 07:00 Intake Total 1550 ml 1080.000 ml Output Total 1200 ml 1200 ml Balance 350 ml -120.000 ml Intake Oral 1550 ml 750 ml IV Total 330.000 ml Output Urine Total 1200 ml 1200 ml # Voids 3 3 Laboratory Tests 11/26/19 06:15: White Blood Count 6.6, Red Blood Count 3.41L, Hemoglobin 11.0L, Hematocrit 31.3L , Mean Corpuscular Volume 92, Mean Corpuscular Hemoglobin 32.2H, Mean Corpuscular Hemoglobin Concent 35.2, Red Cell Distribution Width 10.4L, Platelet Count 300, Mean Platelet Volume 6.5, Neutrophils (%) (Auto) 54.1, Lymphocytes (%) (Auto) 30.4, Monocytes (%) (Auto) 7.3, Eosinophils (%) (Auto) 6.6H, Basophils (%) (Auto) 1.6, Sodium Level 141, Potassium Level 4.1, Chloride Level 106, Carbon Dioxide Level 27, Anion Gap 8, Blood Urea Nitrogen 16, Creatinine 0.9, Estimat Glomerular Filtration Rate > 60, Glucose Level 127H, Hemoglobin A1c 7.7H, Calcium Level 8.0L Height (Feet): 5 Height (Inches): 8.00 Weight (Pounds): 165 Objective GENERAL: No acute distress, appears comfortable, alert HEENT: NCAT, non-icteric eyes, pupils PERRLA Neck: No cervical lymphadenopathy, trachea midline CV: Regular rate and rhythm, no murmurs rubs or gallops RESP: Clear to auscultation bilaterally, no wheezes/rhonchi/crackles ABD: soft, non-distended, no TTP EXT: Left foot area of cellulitis very tender to touch, no active drainage NEURO: No obvious deficits, alert and oriented x3 Gavi Cassidy DO Nov 26, 2019 20:40
[2019-11-26] MEDS: LORazepam 1mg tab ORAL PRN (22:38)
[2019-11-27 00:32] VITALS: BP 130/73
[2019-11-27] MEDS: Vancomycin 1 GM in NS 275 ML IVPB SCH ×3 (02:56→21:49)
--- NOTE | 2019-11-27 03:15 | Consultation ---
DATE OF CONSULTATION: 11/26/2019 HISTORY OF PRESENT ILLNESS: This is a 54-year-old male with a history of diabetes mellitus, history of amputation of bilateral feet. The patient has a history of noncompliance. The patient is now presenting with depressed mood, anhedonia, worthlessness, severe depression, anxiety, insomnia, and inability to cope with the stressors. The patient stated he is forgetful, forgetting his appointment. Therefore, he more complicated. PAST PSYCHIATRIC HISTORY: Depression. He is not on any treatment. PAST MEDICAL HISTORY: As above. ALLERGIES: No known drug allergies. SUBSTANCE ABUSE HISTORY: The patient is denying any illicit drug use or alcohol. MENTAL STATUS EXAMINATION: The patient is alert, oriented times self, place, situation, and date. The patient is calm and cooperative. Mood is depressed. Affect is constricted. Congruent with mood. Thought process is linear and goal oriented. Thought content, no suicidal or homicidal ideation. Cognition is intact. Insight and judgment is intact. ASSESSMENT: [place] I Major depressive disorder. [place] II Deferred. [place] III As above. [place] IV Low. [place] V 20. PLAN: 1. The patient will be started on Lexapro 10 mg in the morning and Remeron for insomnia. 2. Ativan p.r.n. for anxiety. 3. The patient was seen on 11/25/2019. Juan Daniel Templeton M.D. DR: CONNER JOB#: [id number] CC: [email or web address]
[2019-11-27 04:32] VITALS: BP 158/70
[2019-11-27] MEDS: Piperacillin/Tazobactam 3.375 GM in NS 110 ML IVPB SCH ×2 (04:55→14:00)
[2019-11-27] MEDS: NovoLOG Insulin Flexpen SUBQ SCH ×4 (05:21→21:48)
--- NOTE | 2019-11-27 07:20 | NUR ---
HAND-OFF: Report given to Tay Ceron RN.
--- NOTE | 2019-11-27 07:35 | NUR ---
NURSE NOTES: Received patient in bed,awake, verbally responsive. Denies any pain or discomfort. Left foot dressing is intact. No s/s of hypo/hyperglycemia. Bed si in lowest position and locked. Bed alarm is on. Call light and personnel items within reach. Will continue plan of care.
[2019-11-27 08:00] VITALS: BP 131/75
[2019-11-27] MEDS: Enoxaparin 40mg Inj SUBQ SCH (08:34)
[2019-11-27 12:00] VITALS: BP 135/78
--- NOTE | 2019-11-27 12:02 | Surgery Progress Note ---
Surgery Progress Note Subjective Symptoms: tolerating diet, voiding well, passing flatus, pain decreased Objective Last 24 Hour Vital Signs Date Time Temp Pulse Resp B/P (MAP) Pulse Ox O2 Delivery O2 Flow Rate FiO2 11/27/19 09:00 Room Air Room Air 11/27/19 08:00 98.5 79 17 131/75 (93) 99 11/27/19 04:32 98.0 99 21 158/70 (99) 95 11/27/19 00:32 98.0 86 22 130/73 (92) 95 11/26/19 20:37 Room Air Room Air 11/26/19 20:11 98.1 82 20 102/70 (81) 96 11/26/19 16:00 98.5 82 17 144/80 (101) 100 I&O Intake and Output 11/26/19 11/27/19 19:00 07:00 Intake Total 600 ml 1455.000 ml Balance 600 ml 1455.000 ml Intake Oral 600 ml 740 ml IV Total 715.000 ml # Voids 2 3 Dressing: saturated, other Wound: other Cardiovascular: RSR Respiratory: clear Abdomen: soft, flat, non-tender, present bowel sounds Extremities: edema, other Plan Problems: (1) Osteomyelitis Assessment & Plan: Osteomyelitis left foot fourth ray history of prior on the fifth ray status post amputation Labs noted MRI as below Seen by podiatry plan for amputation which patient is amenable to - OR thursday Continue with local wound care and antibiotics cellulitis There is evidence of erosion of the fourth proximal and distal phalange presumably on the basis of acute osteomyelitis. Correlate clinically. Patient has had prior amputation at the base of the fifth metatarsal. There is a well-corticated periarticular erosion on the medial side of the first interphalangeal joint. Similar finding in the medial side of the second proximal interphalangeal joint also noted. The nature of these lesions is unknown but the incidental obviously and may be due to inflammatory arthritis. Correlate clinically. IMPRESSION: Extensive erosion of the middle and distal phalanges of the fourth toe suspicious for acute osteomyelitis. Correlate clinically. Scattered periarticular erosions. Consider inflammatory arthritis Findings are highly suspicious for osteomyelitis of the fourth proximal, middle, and distal phalanges. STIR signal abnormality and subtle T1 signal abnormality of the first metatarsal head and neck, suspicious but not conclusive for acute osteomyelitis Abnormal increased STIR and decreased T1 signal within the medial first metatarsal sesamoid, suspicious for osteomyelitis versus injury of this bone Slightly increased her signal in the third metatarsal shaft and neck, with only equivocal minimal T1 signal abnormality. Slightly increased STIR signal within the third proximal phalanx without T1 signal abnormality This could represent reactive changes versus very early osteomyelitis changes Soft tissue changes, as described. Given stated clinical history, most likely on the basis of cellulitis. Edema of hemodynamic origin also possible. No definite drainable abscess demonstrated (2) Diabetic foot ulcer (3) Cellulitis Assessment & Plan: Left foot cellulitis secondary to infection and abscess of the fourth ray Antibiotics as per infectious disease Podiatry eval Plan for surgery with podiatry once imaging available Thank you for let me participate patient's care will follow with recommendations Matthew Loera Nov 27, 2019 12:02
--- NOTE | 2019-11-27 15:02 | Infectious Diseases Prog Note ---
Assessment/Plan Assessment/Plan ASSESSMENT AND PLAN: 1. 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 amputation, ? debridement 2. The patient has history of hypertension. 3. Diabetes. 4. Blood sugar, blood pressure treatment per primary care team for diabetes, hypertension. 5. Depression. 6. History of bilateral foot fifth toe amputation. 7. No known allergies. 8. Social history negative. 9. Family history is noncontributory. 10. MAR was noted. 11. Case was discussed with RN. 12. Case was discussed with the patient. 13. Case was discussed with Dr. Garcia. 14. Continue treatment per primary consultants. 15. Orders were noted and entered. Subjective Constitutional: Reports: fatigue; Denies: fever HEENT: Denies: congestion Respiratory: Denies: shortness of breath Cardiovascular: Denies: chest pain Gastrointestinal/Abdominal: Denies: nausea, vomiting, diarrhea Genitourinary: Denies: dysuria, hematuria, frequency Neurologic: Reports: other - no sz Psychiatric: Denies: depression Skin: Denies: rash Hematologic: Denies: bleeding Musculoskeletal: Denies: pain Allergies: Coded Allergies: No Known Allergies (Unverified , 11/23/19) Objective Vital Signs Last 24 Hour Vital Signs Date Time Temp Pulse Resp B/P (MAP) Pulse Ox O2 Delivery O2 Flow Rate FiO2 11/27/19 12:00 98.9 84 18 135/78 (97) 99 11/27/19 09:00 Room Air Room Air 11/27/19 08:00 98.5 79 17 131/75 (93) 99 11/27/19 04:32 98.0 99 21 158/70 (99) 95 11/27/19 00:32 98.0 86 22 130/73 (92) 95 11/26/19 20:37 Room Air Room Air 11/26/19 20:11 98.1 82 20 102/70 (81) 96 11/26/19 16:00 98.5 82 17 144/80 (101) 100 Height (Feet): 5 Height (Inches): 8.00 Weight (Pounds): 165 General Appearance: no acute distress HEENT: normocephalic, atraumatic, anicteric Respiratory/Chest: lungs clear, normal breath sounds, no respiratory distress, no accessory muscle use Cardiovascular: normal rate, regular rhythm, no gallop/murmur, no JVD Abdomen: normal bowel sounds, soft, non tender, no organomegaly, non distended Genitourinary: other - no clark Extremities: no cyanosis Skin: no rash Neurologic/Psychiatric: regulatory coordinator II-XII grossly normal, alert, responsive Lymphatic: no neck adenopathy Musculoskeletal: no effusion Objective MRI left foot: Impression: Findings are highly suspicious for osteomyelitis of the fourth proximal, middle, and distal phalanges STIR signal abnormality and subtle T1 signal abnormality of the first metatarsal head and neck, suspicious but not conclusive for acute osteomyelitis Abnormal increased STIR and decreased T1 signal within the medial first metatarsal sesamoid, suspicious for osteomyelitis versus injury of this bone Slightly increased her signal in the third metatarsal shaft and neck, with only equivocal minimal T1 signal abnormality. Slightly increased STIR signal within the third proximal phalanx without T1 signal abnormality This could represent reactive changes versus very early osteomyelitis changes Soft tissue changes, as described. Given stated clinical history, most likely on the basis of cellulitis. Edema of hemodynamic origin also possible. No definite drainable abscess demonstrated Microbiology Date/Time Source Procedure Growth Status 11/23/19 20:45 Nasal Nares MRSA Culture - Final Staphylococcus Aureus - Mrsa Complete 11/24/19 18:00 Toe Left Fourth Gram Stain - Final Complete 11/24/19 18:00 Wound Culture - Final Staphylococcus Aureus - Mrsa Complete Microbiology Date/Time Source Procedure Growth Status 11/24/19 18:00 Toe Left Fourth Gram Stain - Final Complete 11/24/19 18:00 Wound Culture - Final Staphylococcus Aureus - Mrsa Complete Labs Test 11/24/19 15:30 11/25/19 04:04 11/26/19 06:15 Prothrombin Time 10.0 SEC (9.30-11.50) Prothromb Time International Ratio 0.9 (0.9-1.1) Activated Partial Thromboplast Time 36 SEC (23-33) White Blood Count 6.1 K/UL (4.8-10.8) 6.6 K/UL (4.8-10.8) Red Blood Count 3.58 M/UL (4.70-6.10) 3.41 M/UL (4.70-6.10) Hemoglobin 11.2 G/DL (14.2-18.0) 11.0 G/DL (14.2-18.0) Hematocrit 32.5 % (42.0-52.0) 31.3 % (42.0-52.0) Mean Corpuscular Volume 91 FL (80-99) 92 FL (80-99) Mean Corpuscular Hemoglobin 31.4 PG (27.0-31.0) 32.2 PG (27.0-31.0) Mean Corpuscular Hemoglobin Concent 34.6 G/DL (32.0-36.0) 35.2 G/DL (32.0-36.0) Red Cell Distribution Width 10.5 % (11.6-14.8) 10.4 % (11.6-14.8) Platelet Count 273 K/UL (150-450) 300 K/UL (150-450) Mean Platelet Volume 6.5 FL (6.5-10.1) 6.5 FL (6.5-10.1) Neutrophils (%) (Auto) 52.7 % (45.0-75.0) 54.1 % (45.0-75.0) Lymphocytes (%) (Auto) 32.7 % (20.0-45.0) 30.4 % (20.0-45.0) Monocytes (%) (Auto) 8.0 % (1.0-10.0) 7.3 % (1.0-10.0) Eosinophils (%) (Auto) 5.2 % (0.0-3.0) 6.6 % (0.0-3.0) Basophils (%) (Auto) 1.3 % (0.0-2.0) 1.6 % (0.0-2.0) Erythrocyte Sedimentation Rate 62 MM/HR (0-20) Sodium Level 141 MMOL/L (136-145) 141 MMOL/L (136-145) Potassium Level 4.6 MMOL/L (3.5-5.1) 4.1 MMOL/L (3.5-5.1) Chloride Level 108 MMOL/L (98-107) 106 MMOL/L (98-107) Carbon Dioxide Level 29 MMOL/L (21-32) 27 MMOL/L (21-32) Anion Gap 4 mmol/L (5-15) 8 mmol/L (5-15) Blood Urea Nitrogen 13 mg/dL (7-18) 16 mg/dL (7-18) Creatinine 1.0 MG/DL (0.55-1.30) 0.9 MG/DL (0.55-1.30) Estimat Glomerular Filtration Rate > 60 mL/min (>60) > 60 mL/min (>60) Glucose Level 136 MG/DL (74-106) 127 MG/DL (74-106) Calcium Level 8.1 MG/DL (8.5-10.1) 8.0 MG/DL (8.5-10.1) Total Bilirubin 0.2 MG/DL (0.2-1.0) Aspartate Amino Transf (AST/SGOT) 13 U/L (15-37) Alanine Aminotransferase (ALT/SGPT) 22 U/L (12-78) Alkaline Phosphatase 90 U/L (46-116) Total Protein 6.8 G/DL (6.4-8.2) Albumin 2.7 G/DL (3.4-5.0) Globulin 4.1 g/dL Albumin/Globulin Ratio 0.7 (1.0-2.7) Vancomycin Level Trough 8.5 ug/mL (5.0-12.0) Hemoglobin A1c 7.7 % (4.3-6.0) Current Medications Medications (Trade) Dose Ordered Sig/Isela Route PRN Reason Start Time Stop Time Status Last Admin Dose Admin Acetaminophen (Tylenol) 650 mg Q6H PRN ORAL Mild Pain/Temp > 100.5 11/24/19 03:30 12/24/19 03:29 Acetaminophen/ Hydrocodone Bitart ([place] 10/325) 1 tab Q6H PRN ORAL Severe Pain (Pain Scale 7-10) 11/24/19 03:30 12/01/19 03:29 11/25/19 23:50 Acetaminophen/ Hydrocodone Bitart ([place] 5/325) 1 tab Q6H PRN ORAL Moderate Pain (Pain Scale 4-6) 11/24/19 03:30 12/01/19 03:29 11/26/19 09:23 Dextrose (Dextrose 50%) 25 ml Q30M PRN IV Hypoglycemia 11/24/19 04:00 12/24/19 03:59 Dextrose (Dextrose 50%) 50 ml Q30M PRN IV Hypoglycemia 11/24/19 04:00 12/24/19 03:59 Enoxaparin Sodium (Lovenox) 40 mg DAILY SUBQ 11/24/19 09:00 12/24/19 08:59 11/27/19 08:34 Escitalopram Oxalate (Lexapro) 10 mg DAILY ORAL 11/25/19 16:30 12/25/19 16:29 11/27/19 08:33 Insulin Aspart (NovoLOG) BEFORE MEALS AND HS SUBQ 11/24/19 06:30 12/24/19 06:29 11/27/19 11:45 Lorazepam (Ativan) 1 mg Q6H PRN ORAL For Anxiety 11/25/19 16:30 12/02/19 16:29 11/26/19 22:38 Mirtazapine (Remeron) 7.5 mg BEDTIME ORAL 11/25/19 21:00 12/25/19 20:59 11/26/19 21:11 Ondansetron HCl (Zofran) 4 mg Q4H PRN IVP Nausea & Vomiting 11/24/19 03:30 12/24/19 03:29 Piperacillin Sod/ Tazobactam Sod 3.375 gm/Sodium Chloride 110 ml @ 27.5 mls/hr EVERY 8 HOURS IVPB 11/24/19 06:00 11/29/19 05:59 11/27/19 04:55 Sodium Chloride 1,000 ml @ 100 mls/hr Q10H IV 11/27/19 12:15 12/27/19 12:14 11/27/19 13:21 Vancomycin HCl (Vanco rx to dose) 1 ea DAILY MISC 11/24/19 09:00 12/24/19 08:59 Vancomycin HCl 1 gm/Sodium Chloride 275 ml @ 183.708 mls/hr Q8H IVPB 11/25/19 12:00 11/29/19 16:59 11/27/19 13:20 Martha Fuller MD Nov 27, 2019 15:02
[2019-11-27 16:00] VITALS: BP 140/75
--- NOTE | 2019-11-27 18:00 | NUR ---
NURSE NOTES: Patient's left toe dressing is off. Rn tried to do dressing but patient wants Rn to do it later. Will follow up.
--- NOTE | 2019-11-27 19:28 | NUR ---
HAND-OFF: Report given to Vish RN and endorsed plan of care.
[2019-11-27 20:00] VITALS: BP 149/85
--- NOTE | 2019-11-27 20:26 | NUR ---
NURSE NOTES: Pt is in bed, awake and verbal.No acute distress noted. Vitas stable.NS running at 100ml/hr. Fall precaution in place, bed locked low in position,side rail sup and call light within reach. Pt will be monitored. Bed alarm on.
--- NOTE | 2019-11-27 21:42 | NUR ---
NURSE NOTES: Vanco trough has not resulted yet; Pharmacist Nadya asked to give 2000pm dose of 1gm vancomycin IV.
--- NOTE | 2019-11-27 22:59 | General Progress Note ---
Assessment/Plan Status: stable Assessment/Plan: 54 year old male with uncontrolled DM, medication non compliance, prior multiple amputations presents with left 4th toe infection. #Osteomyelitis of the left fourth toe. #Diabetic foot ulcer, left foot. #Type 2 diabetes mellitus with peripheral neuropathy. #History of healed partial fifth ray amputations, bilateral. #Medication non compliance Med surg IV zosyn and vancomycin, wound and blood cultures ID and podiatry consults MRI left foot reviewed glycemic control, insulin ordered. keep glucose 140-180 range Check hemoglobin A1c - plan for OR tomorrow for amputation # ?Depression Denies suicidal ideation, will obtains psychiatry consult with Dr. Templeton I spent 40 minutes on this encounter. Greater than 50% spent in counseling and care coordination. Case discussed with ID and podiatry. Plan of care discussed with patient. Time of note may not reflect time of encounter. Subjective Date patient seen: Nov 27, 2019 Allergies: Coded Allergies: No Known Allergies (Unverified , 11/23/19) Subjective No acute events, afebrile, tenderness at left toe Objective Last 24 Hour Vital Signs Date Time Temp Pulse Resp B/P (MAP) Pulse Ox O2 Delivery O2 Flow Rate FiO2 11/27/19 20:00 98.5 98 18 149/85 (106) 95 11/27/19 16:00 98.3 79 18 140/75 (96) 98 11/27/19 12:00 98.9 84 18 135/78 (97) 99 11/27/19 09:00 Room Air Room Air 11/27/19 08:00 98.5 79 17 131/75 (93) 99 11/27/19 04:32 98.0 99 21 158/70 (99) 95 11/27/19 00:32 98.0 86 22 130/73 (92) 95 Intake and Output 11/26/19 11/27/19 19:00 07:00 Intake Total 600 ml 1455.000 ml Balance 600 ml 1455.000 ml Intake Oral 600 ml 740 ml IV Total 715.000 ml # Voids 2 3 Laboratory Tests 11/27/19 19:10: Vancomycin Level Trough [Pending] Height (Feet): 5 Height (Inches): 8.00 Weight (Pounds): 165 Objective GENERAL: No acute distress, appears comfortable, alert HEENT: NCAT, non-icteric eyes, pupils PERRLA Neck: No cervical lymphadenopathy, trachea midline CV: Regular rate and rhythm, no murmurs rubs or gallops RESP: Clear to auscultation bilaterally, no wheezes/rhonchi/crackles ABD: soft, non-distended, no TTP EXT: Left foot area of cellulitis very tender to touch, no active drainage NEURO: No obvious deficits, alert and oriented x3 Gavi Cassidy DO Nov 27, 2019 22:59
[2019-11-28] VITALS: BP 134/66
[2019-11-28] MEDS: Piperacillin/Tazobactam 3.375 GM in NS 110 ML IVPB SCH ×4 (00:40→22:43)
--- NOTE | 2019-11-28 03:20 | NUR ---
NURSE NOTES: Pt is in bed, asleep. No acute distress noted.
[2019-11-28 04:00] VITALS: BP 135/67
[2019-11-28] MEDS: Vancomycin 1 GM in NS 275 ML IVPB SCH ×3 (05:54→19:58)
[2019-11-28] MEDS: NovoLOG Insulin Flexpen SUBQ SCH ×4 (06:28→20:58)
--- NOTE | 2019-11-28 07:18 | NUR ---
HAND-OFF: Report given to ELMIRA Quinn.
[2019-11-28 07:20] LABS: BASOPHILS % (AUTO) 1.3 % (0.0-2.0); EOSINOPHILS % (AUTO) 12.4 % (0.0-3.0); HEMATOCRIT 31.1 % (42.0-52.0); HEMOGLOBIN 11.2 G/DL (14.2-18.0); LYMPHOCYTES % (AUTO) 19.8 % (20.0-45.0); MEAN CORPUSCULAR VOLUME 90 FL (80-99); MONOCYTES % (AUTO) 7.7 % (1.0-10.0); NEUTROPHILS % (AUTO) 58.8 % (45.0-75.0); PLATELET COUNT 299 K/UL (150-450); RED BLOOD COUNT 3.45 M/UL (4.70-6.10); RED CELL DISTRIBUTION WIDTH 10.5 % (11.6-14.8); WHITE BLOOD COUNT 7.7 K/UL (4.8-10.8)
--- NOTE | 2019-11-28 07:20 | NUR ---
NURSE NOTES: Report received from Vish RN. Patient is awake and alert x 4. Patient is currently NPO due to surgery today. Will hold blood thinning medication this morning. Endorsed that patient is supposed to have dressing on left foot. Patient refusing to wear dressing. educated patient on purpose of dressing, patient continue to refuse. Patient noted to have 18 jourdan IV in right forearm with IV fluids running per MD orders. Patient has no complaints at this time. Call light within reach. Bed locked and in lowest position. Will continue to follow plan of care.
[2019-11-28 07:45] LABS: ALANINE AMINOTRANSFERASE 63 U/L (12-78); ALBUMIN 2.6 G/DL (3.4-5.0); ALBUMIN/GLOBULIN RATIO 0.6 (1.0-2.7); ALKALINE PHOSPHATASE 80 U/L (46-116); ANION GAP 5 mmol/L (5-15); ASPARTATE AMINO TRANSFERASE 52 U/L (15-37); BILIRUBIN,TOTAL 0.1 MG/DL (0.2-1.0); BLOOD UREA NITROGEN 12 mg/dL (7-18); CALCIUM 8.2 MG/DL (8.5-10.1); CARBON DIOXIDE 29 MMOL/L (21-32); CHLORIDE 106 MMOL/L (98-107); CREATININE 0.9 MG/DL (0.55-1.30); POTASSIUM 4.6 MMOL/L (3.5-5.1); SODIUM 140 MMOL/L (136-145)
[2019-11-28 08:00] VITALS: BP 140/69
[2019-11-28] MEDS: Enoxaparin 40mg Inj SUBQ SCH (08:40)
--- NOTE | 2019-11-28 08:41 | NUR ---
NURSE NOTES: 0900 lovenox held due to patient going down for surgery.
--- NOTE | 2019-11-28 11:06 | NUR ---
NURSE NOTES: Patient will not be going down for surgery per Doctor Garcia. Patient is to continue to receive antibiotics and possibly discharge to SNF.
--- NOTE | 2019-11-28 11:57 | NUR ---
NURSE NOTES: Aspen baer came back at 16.2. Nadya from Pharmacy said it is okay to continue with vancomycin at same dose.
[2019-11-28 12:00] VITALS: BP 153/81
--- NOTE | 2019-11-28 14:43 | Surgery Progress Note ---
Surgery Progress Note Subjective Additional Comments planned OR with podiatry today no n/v/f/c comfortable Objective Last 24 Hour Vital Signs Date Time Temp Pulse Resp B/P (MAP) Pulse Ox O2 Delivery O2 Flow Rate FiO2 11/28/19 12:00 97.9 64 18 153/81 (105) 100 11/28/19 09:00 Room Air Room Air 11/28/19 08:00 98.4 87 19 140/69 (92) 99 11/28/19 04:00 98.1 83 18 135/67 (89) 99 11/28/19 00:00 98.3 72 18 134/66 (88) 99 11/27/19 21:00 Room Air Room Air 11/27/19 20:00 98.5 98 18 149/85 (106) 95 11/27/19 16:00 98.3 79 18 140/75 (96) 98 I&O Intake and Output 11/27/19 11/28/19 19:00 07:00 Intake Total 775.000 ml 1358.708 ml Output Total 700 ml Balance 75.000 ml 1358.708 ml IV Total 775.000 ml 1358.708 ml Output Urine Total 700 ml # Voids 2 Dressing: saturated Wound: other Drains: other Cardiovascular: RSR Respiratory: decreased breath sounds Abdomen: soft, present bowel sounds Extremities: other Laboratory Tests Test 11/27/19 19:10 11/28/19 06:45 Vancomycin Level Trough 16.2 ug/mL (5.0-12.0) H White Blood Count 7.7 K/UL (4.8-10.8) Red Blood Count 3.45 M/UL (4.70-6.10) L Hemoglobin 11.2 G/DL (14.2-18.0) L Hematocrit 31.1 % (42.0-52.0) L Mean Corpuscular Volume 90 FL (80-99) Mean Corpuscular Hemoglobin 32.4 PG (27.0-31.0) H Mean Corpuscular Hemoglobin Concent 36.0 G/DL (32.0-36.0) Red Cell Distribution Width 10.5 % (11.6-14.8) L Platelet Count 299 K/UL (150-450) Mean Platelet Volume 6.3 FL (6.5-10.1) L Neutrophils (%) (Auto) 58.8 % (45.0-75.0) Lymphocytes (%) (Auto) 19.8 % (20.0-45.0) L Monocytes (%) (Auto) 7.7 % (1.0-10.0) Eosinophils (%) (Auto) 12.4 % (0.0-3.0) H Basophils (%) (Auto) 1.3 % (0.0-2.0) Prothrombin Time 10.5 SEC (9.30-11.50) Prothromb Time International Ratio 1.0 (0.9-1.1) Activated Partial Thromboplast Time 30 SEC (23-33) Sodium Level 140 MMOL/L (136-145) Potassium Level 4.6 MMOL/L (3.5-5.1) Chloride Level 106 MMOL/L (98-107) Carbon Dioxide Level 29 MMOL/L (21-32) Anion Gap 5 mmol/L (5-15) Blood Urea Nitrogen 12 mg/dL (7-18) Creatinine 0.9 MG/DL (0.55-1.30) Estimat Glomerular Filtration Rate > 60 mL/min (>60) Glucose Level 161 MG/DL (74-106) H Calcium Level 8.2 MG/DL (8.5-10.1) L Total Bilirubin 0.1 MG/DL (0.2-1.0) L Aspartate Amino Transf (AST/SGOT) 52 U/L (15-37) H Alanine Aminotransferase (ALT/SGPT) 63 U/L (12-78) Alkaline Phosphatase 80 U/L (46-116) Total Protein 7.0 G/DL (6.4-8.2) Albumin 2.6 G/DL (3.4-5.0) L Globulin 4.4 g/dL Albumin/Globulin Ratio 0.6 (1.0-2.7) L Plan Problems: (1) Osteomyelitis Assessment & Plan: Osteomyelitis left foot fourth ray history of prior on the fifth ray status post amputation Labs noted MRI as below Seen by podiatry plan for amputation which patient is amenable to - OR thursday Continue with local wound care and antibiotics cellulitis There is evidence of erosion of the fourth proximal and distal phalange presumably on the basis of acute osteomyelitis. Correlate clinically. Patient has had prior amputation at the base of the fifth metatarsal. There is a well-corticated periarticular erosion on the medial side of the first interphalangeal joint. Similar finding in the medial side of the second proximal interphalangeal joint also noted. The nature of these lesions is unknown but the incidental obviously and may be due to inflammatory arthritis. Correlate clinically. IMPRESSION: Extensive erosion of the middle and distal phalanges of the fourth toe suspicious for acute osteomyelitis. Correlate clinically. Scattered periarticular erosions. Consider inflammatory arthritis Findings are highly suspicious for osteomyelitis of the fourth proximal, middle, and distal phalanges. STIR signal abnormality and subtle T1 signal abnormality of the first metatarsal head and neck, suspicious but not conclusive for acute osteomyelitis Abnormal increased STIR and decreased T1 signal within the medial first metatarsal sesamoid, suspicious for osteomyelitis versus injury of this bone Slightly increased her signal in the third metatarsal shaft and neck, with only equivocal minimal T1 signal abnormality. Slightly increased STIR signal within the third proximal phalanx without T1 signal abnormality This could represent reactive changes versus very early osteomyelitis changes Soft tissue changes, as described. Given stated clinical history, most likely on the basis of cellulitis. Edema of hemodynamic origin also possible. No definite drainable abscess demonstrated (2) Diabetic foot ulcer (3) Cellulitis Assessment & Plan: Left foot cellulitis secondary to infection and abscess of the fourth ray Antibiotics as per infectious disease Podiatry eval Plan for surgery with podiatry once imaging available Thank you for let me participate patient's care will follow with recommendations Matthew Loera Nov 28, 2019 14:43
--- NOTE | 2019-11-28 15:22 | NUR ---
RD ASSESSMENT & RECOMMENDATIONS SEE CARE ACTIVITY FOR COMPLETE ASSESSMENT DAILY ESTIMATED NEEDS: Needs based on DM, wound/ 71kg abw 25-30 kcals/kg 1056-8050 total kcals 1.25-1.5 g protein/kg 89-89 g total protein 25-30 mL/kg 9226-1640 total fluid mLs NUTRITION DIAGNOSIS: Increased kcal/prot needs R/T wound healing as evidenced by OM of left foot fourth ray pending amputation. CURRENT DIET:CCHO LOW PO DIET RECOMMENDATIONS: CCHO MED + double protein portions ADDITIONAL RECOMMENDATIONS: * Calibrated bedscale wt for accurate CBW * Post amputation: add MVI x 1, Vit C 500mg QD, Issac 1pkt BID for wound healing * Monitor BGs closely, for additional hypoglycemics for improved BG control
--- NOTE | 2019-11-28 15:51 | General Progress Note ---
Assessment/Plan Problem List: (1) Osteomyelitis ICD Codes: M86.9 - Osteomyelitis, unspecified SNOMED: 66433207, 22478960 (2) Diabetic foot ulcer ICD Codes: E11.621 - Type 2 diabetes mellitus with foot ulcer; L97.509 - Non- pressure chronic ulcer of other part of unspecified foot with unspecified severity SNOMED: 840282543, 70340583 (3) Uncontrolled diabetes mellitus ICD Codes: E11.65 - Type 2 diabetes mellitus with hyperglycemia SNOMED: 15822796, 277162704 Status: stable Assessment/Plan: 54 year old male with uncontrolled DM, medication non compliance, prior multiple amputations presents with left 4th toe infection. #Osteomyelitis of the left fourth toe. #Diabetic foot ulcer, left foot. #Type 2 diabetes mellitus with peripheral neuropathy. #History of healed partial fifth ray amputations, bilateral. #Medication non compliance Med surg IV zosyn and vancomycin, wound and blood cultures ID and podiatry consults MRI left foot, suspicious for OM, per podiatry treat for osteo for 6 weeks IV antibiotics and wound care glycemic control, insulin ordered. keep glucose 140-180 range Check hemoglobin A1c # ?Depression Denies suicidal ideation, will obtains psychiatry consult with Dr. Templeton I spent 40 minutes on this encounter. Greater than 50% spent in counseling and care coordination. Case discussed with ID and podiatry. Plan of care discussed with patient. Time of note may not reflect time of encounter. Subjective Date patient seen: Nov 29, 2019 Allergies: Coded Allergies: No Known Allergies (Unverified , 11/23/19) Subjective Following up for left fourth toe diabetic foot infection. No acute events overnight. Glucose under relatively good control. Seen by ID and podiatry. Objective Last 24 Hour Vital Signs Date Time Temp Pulse Resp B/P (MAP) Pulse Ox O2 Delivery O2 Flow Rate FiO2 11/28/19 12:00 97.9 64 18 153/81 (105) 100 11/28/19 09:00 Room Air Room Air 11/28/19 08:00 98.4 87 19 140/69 (92) 99 11/28/19 04:00 98.1 83 18 135/67 (89) 99 11/28/19 00:00 98.3 72 18 134/66 (88) 99 11/27/19 21:00 Room Air Room Air 11/27/19 20:00 98.5 98 18 149/85 (106) 95 11/27/19 16:00 98.3 79 18 140/75 (96) 98 Intake and Output 11/27/19 11/28/19 19:00 07:00 Intake Total 775.000 ml 1358.708 ml Output Total 700 ml Balance 75.000 ml 1358.708 ml IV Total 775.000 ml 1358.708 ml Output Urine Total 700 ml # Voids 2 Laboratory Tests 11/27/19 19:10: Vancomycin Level Trough 16.2H 11/28/19 06:45: White Blood Count 7.7, Red Blood Count 3.45L, Hemoglobin 11.2L, Hematocrit 31.1L , Mean Corpuscular Volume 90, Mean Corpuscular Hemoglobin 32.4H, Mean Corpuscular Hemoglobin Concent 36.0, Red Cell Distribution Width 10.5L, Platelet Count 299, Mean Platelet Volume 6.3L, Neutrophils (%) (Auto) 58.8, Lymphocytes (%) (Auto) 19.8L, Monocytes (%) (Auto) 7.7, Eosinophils (%) (Auto) 12.4H, Basophils (%) (Auto) 1.3, Prothrombin Time 10.5, Prothromb Time International Ratio 1.0, Activated Partial Thromboplast Time 30, Sodium Level 140, Potassium Level 4.6, Chloride Level 106, Carbon Dioxide Level 29, Anion Gap 5, Blood Urea Nitrogen 12, Creatinine 0.9, Estimat Glomerular Filtration Rate > 60, Glucose Level 161H, Calcium Level 8.2L, Total Bilirubin 0.1L, Aspartate Amino Transf (AST/SGOT) 52H, Alanine Aminotransferase (ALT/SGPT) 63, Alkaline Phosphatase 80, Total Protein 7.0, Albumin 2.6L, Globulin 4.4, Albumin/ Globulin Ratio 0.6L Height (Feet): 5 Height (Inches): 8.00 Weight (Pounds): 165 Objective General Appearance: no apparent distress Lines, tubes and drains: peripheral HEENT: normocephalic, atraumatic, anicteric Neck: non-tender, normal alignment, supple Respiratory/Chest: chest wall non-tender, lungs clear, normal breath sounds Cardiovascular/Chest: normal peripheral pulses, normal rate, regular rhythm, no gallop/murmur, no JVD Abdomen: normal bowel sounds, non tender, soft, no organomegaly Extremities: other Skin Exam: other - full-thickness ulceration noted on the lateral aspect of the left fourth toe. There is scant serous drainage noted from the site. No malodor is noted. Skin is erythematous. No bone or tendon exposed. Surgical incision sites from previous surgeries bilateral are healed. Neurologic: electronic console display operator II-XII grossly normal, no motor/sensory deficits, oriented x 3 Musculoskeletal: normal muscle bulk Tam Garcia M.D. Nov 28, 2019 15:51
[2019-11-28 16:00] VITALS: BP 153/75
--- NOTE | 2019-11-28 16:55 | NUR ---
*-* DISCHARGE PLANNING *-* PATIENT HAS BEEN REFERRED TO: SHANE CELAYA P: [phone] F: [phone]
--- NOTE | 2019-11-28 19:26 | NUR ---
HAND-OFF: Report given to Belia KU.
--- NOTE | 2019-11-28 19:30 | NUR ---
NURSE NOTES: Received patient awake, alert, verbal, ambulates with a cane, resting in bed, comfortable.
[2019-11-28 20:39] VITALS: BP 166/87
[2019-11-29 00:18] VITALS: BP 124/59
[2019-11-29] MEDS: LORazepam 1mg tab ORAL PRN ×2 (01:52→23:19)
[2019-11-29] MEDS: Vancomycin 1 GM in NS 275 ML IVPB SCH ×3 (03:22→19:49)
[2019-11-29 04:07] VITALS: BP 131/64
[2019-11-29] MEDS: Piperacillin/Tazobactam 3.375 GM in NS 110 ML IVPB SCH (05:02)
[2019-11-29] MEDS: NovoLOG Insulin Flexpen SUBQ SCH ×4 (05:44→20:37)
--- NOTE | 2019-11-29 07:25 | NUR ---
HAND-OFF: Report given to Clair Ramos RN.
--- NOTE | 2019-11-29 07:26 | NUR ---
NURSE NOTES: Received patient in bed asleep. No SOB or acute distress. IV line intact and patent. HOB elevated. Bed locked in lowest position. Call light within reach. Will continue plan of care.
[2019-11-29 08:00] VITALS: BP 142/75
[2019-11-29] MEDS ORDERED: Lidocaine 1% Plain 30 ml INJ ONE (09:00)
[2019-11-29] MEDS ORDERED: Heparin1,000 units/500ml Premix(Conc:2 units/ml) ONE (09:00)
[2019-11-29] MEDS: Enoxaparin 40mg Inj SUBQ SCH (09:12)
--- NOTE | 2019-11-29 10:00 | Progress Note ---
DATE: 11/28/2019 SUBJECTIVE: The patient is overall doing well, smiling today, more hopeful. Sleep adequate. Less anxious. The patient is The patient was NPO appetite. MENTAL STATUS EXAMINATION: The patient is alert and oriented times self, place, situation, and date. Mood is depressed. Affect is constricted. Congruent with mood. Thought process is linear and goal oriented. Thought content, no suicidal or homicidal ideation. ASSESSMENT: 1. Major depressive disorder. 2. Anxiety disorder. PLAN: 1. We will continue current medication. 2. Provide the patient with reality orientation and supportive therapy. Juan Daniel Templeton M.D. DR: CONNER JOB#: [id number] CC: JEREMY
--- NOTE | 2019-11-29 10:30 | NUR ---
NURSE NOTES: Called [employer] spoke with Jessi regarding diabetic shoes c/o [employer], she told me to call social worker psychiatric. RN called social worker psychiatric and spoke with Sarah, she said she will contact the case investigator for the shoes.
[2019-11-29] MEDS ORDERED: Heparin1,000 units/500ml Premix(Conc:2 units/ml) IV PRN (11:00)
[2019-11-29] MEDS ORDERED: Lidocaine 1% Plain 30 ml INJ PRN (11:00)
[2019-11-29 12:00] VITALS: BP 143/71
--- NOTE | 2019-11-29 13:50 | Surgery Progress Note ---
Surgery Progress Note Subjective Additional Comments No acute events. Understands care plan. No nausea or fever chills. Comfortable. States he is excited if wound gets better without surgical intervention Objective Last 24 Hour Vital Signs Date Time Temp Pulse Resp B/P (MAP) Pulse Ox O2 Delivery O2 Flow Rate FiO2 11/29/19 09:00 Room Air Room Air 11/29/19 08:00 97.7 78 19 142/75 (97) 99 11/29/19 04:07 98.5 78 16 131/64 (86) 98 11/29/19 00:18 98.7 80 18 124/59 (80) 97 11/28/19 20:39 98.9 80 15 166/87 (113) 99 11/28/19 20:18 Room Air Room Air 11/28/19 16:00 97.7 71 19 153/75 (101) 100 I&O Intake and Output 11/28/19 11/29/19 19:00 07:00 Intake Total 2186.292 ml 1695.000 ml Balance 2186.292 ml 1695.000 ml Intake Oral 1600 ml 780 ml IV Total 586.292 ml 915.000 ml # Voids 8 4 # Bowel Movements 1 Dressing: dry Wound: clean, dry Cardiovascular: RSR Respiratory: clear Abdomen: soft, non-tender, present bowel sounds Extremities: edema, no tenderness, no cyanosis, other Plan Problems: (1) Osteomyelitis Assessment & Plan: Osteomyelitis left foot fourth ray history of prior on the fifth ray status post amputation Labs noted MRI as below Seen by podiatry plan for IV antibiotic care Continue with local wound care and antibiotics cellulitis There is evidence of erosion of the fourth proximal and distal phalange presumably on the basis of acute osteomyelitis. Correlate clinically. Patient has had prior amputation at the base of the fifth metatarsal. There is a well-corticated periarticular erosion on the medial side of the first interphalangeal joint. Similar finding in the medial side of the second proximal interphalangeal joint also noted. The nature of these lesions is unknown but the incidental obviously and may be due to inflammatory arthritis. Correlate clinically. IMPRESSION: Extensive erosion of the middle and distal phalanges of the fourth toe suspicious for acute osteomyelitis. Correlate clinically. Scattered periarticular erosions. Consider inflammatory arthritis Findings are highly suspicious for osteomyelitis of the fourth proximal, middle, and distal phalanges. STIR signal abnormality and subtle T1 signal abnormality of the first metatarsal head and neck, suspicious but not conclusive for acute osteomyelitis Abnormal increased STIR and decreased T1 signal within the medial first metatarsal sesamoid, suspicious for osteomyelitis versus injury of this bone Slightly increased her signal in the third metatarsal shaft and neck, with only equivocal minimal T1 signal abnormality. Slightly increased STIR signal within the third proximal phalanx without T1 signal abnormality This could represent reactive changes versus very early osteomyelitis changes Soft tissue changes, as described. Given stated clinical history, most likely on the basis of cellulitis. Edema of hemodynamic origin also possible. No definite drainable abscess demonstrated (2) Diabetic foot ulcer (3) Cellulitis Assessment & Plan: Left foot cellulitis secondary to infection and abscess of the fourth ray Antibiotics as per infectious disease Podiatry eval Continue with antibiotics as per podiatry Local wound care SNF placement Discharge planning Thank you Thank you for let me participate patient's care will follow with recommendations Matthew Loera Nov 29, 2019 13:50
--- NOTE | 2019-11-29 14:17 | NUR ---
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 Informed [facility] of [facility]. Patient for PICC line insertion today, consent secured.
--- NOTE | 2019-11-29 15:35 | Pre-Procedure Note/Attestation ---
Pre-Procedure Note/Attestation Complete Prior to Procedure Planned Procedure: not applicable Procedure Narrative: PICC Indications for Procedure Pre-Operative Diagnosis: cellulitis Attestation I attest that I discussed the nature of the procedure; its benefits; risks and complications; and alternatives (and the risks and benefits of such alternatives ), prior to the procedure, with the patient (or the patient's legal phlebotomy services representative). I attest that, if there was a reasonable possibility of needing a blood transfusion, the patient (or the patient's legal phlebotomy services representative) was given the [facility] standardized written summary, pursuant to the Dany Roxanne Blood Safety Act ([place] Health and Safety Code # 1645, as amended). I attest that I re-evaluated the patient just prior to the surgery and that there has been no change in the patient's H&P, except as documented below: Rex Lla MD Nov 29, 2019 15:35
--- NOTE | 2019-11-29 15:36 | Brief Operative Note ---
Immediate Post Operative Note Operative Note Pre-op Diagnosis: cellulitis Procedure: L arm PICC Post-op Diagnosis: same as pre-op Surgeon: Cathleen Avila Anesthesia: local Specimen: none Complications: none Fluids: none Implant(s) used?: No Rex Avila MD Nov 29, 2019 15:36
[2019-11-29 16:00] VITALS: BP 143/84
--- NOTE | 2019-11-29 16:17 | NUR ---
RADIOLOGY NOTE: LEFT UPPER EXTREMITY PICC LINE PLACEMENT BY DR. LINO JOY AT 1425 HRS. FA
--- NOTE | 2019-11-29 16:33 | NUR ---
CASE MANAGEMENT:DISCHARGE PLANNING PATIENT HAS BEEN REFERRED TO: [facility] P: F: CLINICALS FAXED TO NUMBER LISTED WILL FOLLOW UP Addendum: 11/30/19 at 1029 by LIZA KULKARNI LVN LVN PER [place] [facility], PATIENT ACCEPTED RM [id number] SKILLED FOR NURSE TO NURSE REPORT
--- NOTE | 2019-11-29 16:57 | Diagnostic Imaging Report ---
Indications: Needs long-term IV access Technique: Ultrasound confirms patent compressible left basilic vein. Total sterile technique, including sterile probe cover and sterile gel, hat, mask, sterile gown, large sterile drape, and preparation with 2% chlorhexidine utilized. Local anesthesia with 1% lidocaine. Under real-time ultrasound guidance, puncture left basilic vein using 21-gauge needle, documented and archived, passage 0.018 guidewire under direct fluoroscopy, which was used to determine appropriate catheter length, exchange for 4 Ukrainian peel-away sheath. 4 Ukrainian Bard dual-lumen power PICC cut to 48 cm. It was inserted through the peel-away sheath. Peel-away sheath and guidewire removed. Catheter fixed to the skin. Both catheter ports aspirated and flushed. Patient tolerated procedure well, without immediate complication. Digital radiograph documents satisfactory catheter tip position, at the cavoatrial junction. Total fluoroscopy time 17.8 seconds. Total dose area product [id number] Total number of images: 1 Impression: Successful placement of left arm PICC under sonographic and fluoroscopic guidance, as described above.
--- NOTE | 2019-11-29 17:00 | NUR ---
NURSE NOTES: IV line on right forearm removed, tolerated well. No s/sx of infiltration.
--- NOTE | 2019-11-29 19:06 | NUR ---
HAND-OFF: Report given to
--- NOTE | 2019-11-29 19:29 | NUR ---
NURSE NOTES: Received patient comfortably sleeping in bed.
--- NOTE | 2019-11-29 19:43 | Infectious Diseases Prog Note ---
Assessment/Plan Assessment/Plan ASSESSMENT AND PLAN: 1. mrsa left foot 4th toe osteomyelitis/infected wound/cellulitis, mrsa colonization - vancomycin - Day # - check labs and sed rate - d/w Dr. Garcia who discussed with podiatry who favor intermediate accountant abx for osteo tx, no surgery at this time 2. The patient has history of hypertension. 3. Diabetes. 4. Blood sugar, blood pressure treatment per primary care team for diabetes, hypertension. 5. Depression. 6. History of bilateral foot fifth toe amputation. 7. No known allergies. 8. Social history negative. 9. Family history is noncontributory. 10. MAR was noted. 11. Case was discussed with RN. 12. Case was discussed with the patient. 13. Case was discussed with Dr. Garcia. 14. Continue treatment per primary consultants. 15. Orders were noted and entered. Subjective Constitutional: Denies: fever HEENT: Denies: congestion Respiratory: Denies: shortness of breath Cardiovascular: Denies: chest pain Gastrointestinal/Abdominal: Denies: nausea, vomiting, diarrhea Neurologic: Denies: headache Psychiatric: Denies: depression Skin: Denies: rash Hematologic: Denies: bleeding Musculoskeletal: Denies: pain Allergies: Coded Allergies: No Known Allergies (Unverified , 11/23/19) Objective Vital Signs Last 24 Hour Vital Signs Date Time Temp Pulse Resp B/P (MAP) Pulse Ox O2 Delivery O2 Flow Rate FiO2 11/29/19 16:00 98.2 74 19 143/84 (103) 97 11/29/19 12:00 98.4 64 21 143/71 (95) 97 11/29/19 09:00 Room Air Room Air 11/29/19 08:00 97.7 78 19 142/75 (97) 99 11/29/19 04:07 98.5 78 16 131/64 (86) 98 11/29/19 00:18 98.7 80 18 124/59 (80) 97 11/28/19 20:39 98.9 80 15 166/87 (113) 99 11/28/19 20:18 Room Air Room Air Height (Feet): 5 Height (Inches): 8.00 Weight (Pounds): 165 General Appearance: no acute distress HEENT: normocephalic, atraumatic, anicteric, mucous membranes moist Respiratory/Chest: lungs clear, normal breath sounds, no respiratory distress, no accessory muscle use Cardiovascular: normal rate, regular rhythm, no gallop/murmur, no JVD Abdomen: normal bowel sounds, soft, non tender, no organomegaly, non distended Genitourinary: other - no clark Extremities: other - left foot 4th toe with some swelling, no redness or significant drainage Skin: no rash Neurologic/Psychiatric: 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 grossly normal, alert, oriented x 3, responsive Lymphatic: no neck adenopathy Musculoskeletal: no effusion Objective MRI left foot: Impression: Findings are highly suspicious for osteomyelitis of the fourth proximal, middle, and distal phalanges STIR signal abnormality and subtle T1 signal abnormality of the first metatarsal head and neck, suspicious but not conclusive for acute osteomyelitis Abnormal increased STIR and decreased T1 signal within the medial first metatarsal sesamoid, suspicious for osteomyelitis versus injury of this bone Slightly increased her signal in the third metatarsal shaft and neck, with only equivocal minimal T1 signal abnormality. Slightly increased STIR signal within the third proximal phalanx without T1 signal abnormality This could represent reactive changes versus very early osteomyelitis changes Soft tissue changes, as described. Given stated clinical history, most likely on the basis of cellulitis. Edema of hemodynamic origin also possible. No definite drainable abscess demonstrated Microbiology Date/Time Source Procedure Growth Status 11/23/19 20:45 Nasal Nares MRSA Culture - Final Staphylococcus Aureus - Mrsa Complete 11/24/19 18:00 Toe Left Fourth Gram Stain - Final Complete 11/24/19 18:00 Wound Culture - Final Staphylococcus Aureus - Mrsa Complete Labs Test 11/27/19 19:10 11/28/19 06:45 Vancomycin Level Trough 16.2 ug/mL (5.0-12.0) White Blood Count 7.7 K/UL (4.8-10.8) Red Blood Count 3.45 M/UL (4.70-6.10) Hemoglobin 11.2 G/DL (14.2-18.0) Hematocrit 31.1 % (42.0-52.0) Mean Corpuscular Volume 90 FL (80-99) Mean Corpuscular Hemoglobin 32.4 PG (27.0-31.0) Mean Corpuscular Hemoglobin Concent 36.0 G/DL (32.0-36.0) Red Cell Distribution Width 10.5 % (11.6-14.8) Platelet Count 299 K/UL (150-450) Mean Platelet Volume 6.3 FL (6.5-10.1) Neutrophils (%) (Auto) 58.8 % (45.0-75.0) Lymphocytes (%) (Auto) 19.8 % (20.0-45.0) Monocytes (%) (Auto) 7.7 % (1.0-10.0) Eosinophils (%) (Auto) 12.4 % (0.0-3.0) Basophils (%) (Auto) 1.3 % (0.0-2.0) Prothrombin Time 10.5 SEC (9.30-11.50) Prothromb Time International Ratio 1.0 (0.9-1.1) Activated Partial Thromboplast Time 30 SEC (23-33) Sodium Level 140 MMOL/L (136-145) Potassium Level 4.6 MMOL/L (3.5-5.1) Chloride Level 106 MMOL/L (98-107) Carbon Dioxide Level 29 MMOL/L (21-32) Anion Gap 5 mmol/L (5-15) Blood Urea Nitrogen 12 mg/dL (7-18) Creatinine 0.9 MG/DL (0.55-1.30) Estimat Glomerular Filtration Rate > 60 mL/min (>60) Glucose Level 161 MG/DL (74-106) Calcium Level 8.2 MG/DL (8.5-10.1) Total Bilirubin 0.1 MG/DL (0.2-1.0) Aspartate Amino Transf (AST/SGOT) 52 U/L (15-37) Alanine Aminotransferase (ALT/SGPT) 63 U/L (12-78) Alkaline Phosphatase 80 U/L (46-116) Total Protein 7.0 G/DL (6.4-8.2) Albumin 2.6 G/DL (3.4-5.0) Globulin 4.4 g/dL Albumin/Globulin Ratio 0.6 (1.0-2.7) Current Medications Medications (Trade) Dose Ordered Sig/Isela Route PRN Reason Start Time Stop Time Status Last Admin Dose Admin Acetaminophen (Tylenol) 650 mg Q6H PRN ORAL Mild Pain/Temp > 100.5 11/24/19 03:30 12/24/19 03:29 Acetaminophen/ Hydrocodone Bitart ([place] 10/325) 1 tab Q6H PRN ORAL Severe Pain (Pain Scale 7-10) 11/24/19 03:30 12/01/19 03:29 11/25/19 23:50 Acetaminophen/ Hydrocodone Bitart ([place] 5/325) 1 tab Q6H PRN ORAL Moderate Pain (Pain Scale 4-6) 11/24/19 03:30 12/01/19 03:29 11/26/19 09:23 Chlorhexidine Gluconate (Audelia-Hex 2%) 1 applic DAILY@2000 TOPIC 11/29/19 20:00 12/29/19 19:59 Dextrose (Dextrose 50%) 25 ml Q30M PRN IV Hypoglycemia 11/24/19 04:00 12/24/19 03:59 Dextrose (Dextrose 50%) 50 ml Q30M PRN IV Hypoglycemia 11/24/19 04:00 12/24/19 03:59 Enoxaparin Sodium (Lovenox) 40 mg DAILY SUBQ 11/24/19 09:00 12/24/19 08:59 11/29/19 09:12 Escitalopram Oxalate (Lexapro) 10 mg DAILY ORAL 11/25/19 16:30 12/25/19 16:29 11/29/19 09:11 Heparin Sodium/ Sodium Chloride (Heparin 1000 units/500ml Premix) 1,000 unit ONCE PRN IV picc line placement 11/29/19 11:00 12/01/19 10:59 Insulin Aspart (NovoLOG) BEFORE MEALS AND HS SUBQ 11/24/19 06:30 12/24/19 06:29 11/29/19 16:38 Lidocaine HCl (Xylocaine 1% 30ml) 30 ml ONCE PRN INJ picc line placement 11/29/19 11:00 12/01/19 10:59 Lorazepam (Ativan) 1 mg Q6H PRN ORAL For Anxiety 11/25/19 16:30 12/02/19 16:29 11/29/19 01:52 Mirtazapine (Remeron) 7.5 mg BEDTIME ORAL 11/25/19 21:00 12/25/19 20:59 11/28/19 20:56 Ondansetron HCl (Zofran) 4 mg Q4H PRN IVP Nausea & Vomiting 11/24/19 03:30 12/24/19 03:29 Sodium Chloride 1,000 ml @ 100 mls/hr Q10H IV 11/27/19 12:15 12/27/19 12:14 11/29/19 15:41 Vancomycin HCl (Vanco rx to dose) 1 ea DAILY PRN MISC . 11/29/19 09:15 12/28/19 08:59 Vancomycin HCl 1 gm/Sodium Chloride 275 ml @ 183.708 mls/hr Q8H IVPB 11/27/19 20:00 12/02/19 00:59 11/29/19 12:42 Martha Fuller MD Nov 29, 2019 19:43
[2019-11-29] MEDS ORDERED: Dyna-Hex 2% Top Sol 2oz TOPIC SCH (20:00)
[2019-11-29 20:42] VITALS: BP 159/92
[2019-11-30 00:45] VITALS: BP 129/77
[2019-11-30] MEDS: Vancomycin 1 GM in NS 275 ML IVPB SCH (03:58)
[2019-11-30 04:05] VITALS: BP 132/68
[2019-11-30 04:28] VITALS: BP 125/83
[2019-11-30] MEDS: NovoLOG Insulin Flexpen SUBQ SCH ×2 (05:41→11:55)
[2019-11-30 06:39] LABS: BASOPHILS % (AUTO) 1.1 % (0.0-2.0); EOSINOPHILS % (AUTO) 7.9 % (0.0-3.0); HEMATOCRIT 31.1 % (42.0-52.0); HEMOGLOBIN 10.6 G/DL (14.2-18.0); LYMPHOCYTES % (AUTO) 18.4 % (20.0-45.0); MEAN CORPUSCULAR VOLUME 93 FL (80-99); MONOCYTES % (AUTO) 8.2 % (1.0-10.0); NEUTROPHILS % (AUTO) 64.4 % (45.0-75.0); PLATELET COUNT 279 K/UL (150-450); RED BLOOD COUNT 3.36 M/UL (4.70-6.10); RED CELL DISTRIBUTION WIDTH 10.9 % (11.6-14.8); WHITE BLOOD COUNT 10.2 K/UL (4.8-10.8)
[2019-11-30 07:04] LABS: ANION GAP 3 mmol/L (5-15); BLOOD UREA NITROGEN 14 mg/dL (7-18); CALCIUM 8.1 MG/DL (8.5-10.1); CARBON DIOXIDE 32 MMOL/L (21-32); CHLORIDE 105 MMOL/L (98-107); CREATININE 0.9 MG/DL (0.55-1.30); POTASSIUM 4.2 MMOL/L (3.5-5.1); SODIUM 140 MMOL/L (136-145)
--- NOTE | 2019-11-30 07:18 | NUR ---
HAND-OFF: Report given to Clair Ramos RN.
--- NOTE | 2019-11-30 07:20 | NUR ---
NURSE NOTES: Received patient in bed asleep. No SOB or acute distress. PICC line intact and patent, no bleeding, dressing clean. HOB elevated. Bed locked in lowest position. Call light within reach. Will continue plan of care.
[2019-11-30 08:00] VITALS: BP 157/85
[2019-11-30] MEDS: Enoxaparin 40mg Inj SUBQ SCH (08:01)
--- NOTE | 2019-11-30 09:44 | General Progress Note ---
Assessment/Plan Problem List: (1) Osteomyelitis ICD Codes: M86.9 - Osteomyelitis, unspecified SNOMED: 55007711, 31638040 (2) Diabetic foot ulcer ICD Codes: E11.621 - Type 2 diabetes mellitus with foot ulcer; L97.509 - Non- pressure chronic ulcer of other part of unspecified foot with unspecified severity SNOMED: 629014431, 58767404 (3) Uncontrolled diabetes mellitus ICD Codes: E11.65 - Type 2 diabetes mellitus with hyperglycemia SNOMED: 55162963, 396903229 Status: stable Assessment/Plan: 54 year old male with uncontrolled DM, medication non compliance, prior multiple amputations presents with left 4th toe infection. #Osteomyelitis of the left fourth toe. #Diabetic foot ulcer, left foot. #Type 2 diabetes mellitus with peripheral neuropathy. A1c 7.7 #History of healed partial fifth ray amputations, bilateral. #Medication non compliance Med surg IV zosyn and vancomycin, wound and blood cultures. MRSA, d/c Zosyn. Continue vancomycin day ID and podiatry consults MRI left foot, suspicious for OM, per podiatry treat for osteo for 6 weeks IV antibiotics and wound care glycemic control, insulin ordered. keep glucose 140-180 range picc placement # ?Depression Denies suicidal ideation, will obtains psychiatry consult with Dr. Templeton Started on Lexapro and Mirtazapine DC planning: CV east after picc placement I spent 40 minutes on this encounter. Greater than 50% spent in counseling and care coordination. Case discussed with ID and podiatry. Plan of care discussed with patient. Time of note may not reflect time of encounter. Subjective Date patient seen: Nov 29, 2019 ROS Limited/Unobtainable: No Constitutional: Denies: no symptoms, chills, diaphoresis, fever, malaise, weakness, other HEENT: Denies: no symptoms, eye pain, blurred vision, tearing, double vision, ear pain, ear discharge, nose pain, nose congestion, throat pain, throat swelling, mouth pain, mouth swelling, other Cardiovascular: Denies: no symptoms, chest pain, edema, irregular heart rate, lightheadedness, palpitations, syncope, other Respiratory: Denies: no symptoms, cough, orthopnea, shortness of breath, SOB with excertion, SOB at rest, sputum, stridor, wheezing, other Gastrointestinal/Abdominal: Denies: no symptoms, abdomen distended, abdominal pain, black stools, tarry stools, blood in stool, constipated, diarrhea, difficulty swallowing, nausea, poor appetite, poor fluid intake, rectal bleeding , vomiting, other Genitourinary: Denies: no symptoms, burning, discharge, frequency, flank pain, hematuria, incontinence, pain, urgency, other Neurologic/Psychiatric: Denies: no symptoms, anxiety, depressed, emotional problems, headache, numbness, paresthesia, pre-existing deficit, seizure, tingling, tremors, weakness, other Endocrine: Denies: no symptoms, excessive sweating, flushing, intolerance to cold, intolerance to heat, increased hunger, increased thirst, increased urine, unexplained weight gain, unexplained weight loss, other Hematologic/Lymphatic: Denies: no symptoms, anemia, easy bleeding, easy bruising, other Allergies: Coded Allergies: No Known Allergies (Unverified , 11/23/19) Subjective Following up for left fourth toe diabetic foot infection. No acute events overnight. Glucose under relatively good control. Seen by ID and podiatry. d/ w podiatry who favors treating for OM and salvaging the toe. Objective Last 24 Hour Vital Signs Date Time Temp Pulse Resp B/P (MAP) Pulse Ox O2 Delivery O2 Flow Rate FiO2 11/30/19 08:00 97.5 68 19 157/85 (109) 98 11/30/19 04:28 98.0 73 18 125/83 (97) 100 11/30/19 04:05 98.6 78 18 132/68 (89) 96 11/30/19 00:45 98.5 89 16 129/77 (94) 100 11/29/19 20:51 Room Air Room Air 11/29/19 20:42 97.8 73 12 159/92 (114) 99 11/29/19 16:00 98.2 74 19 143/84 (103) 97 11/29/19 12:00 98.4 64 21 143/71 (95) 97 Intake and Output 11/29/19 11/30/19 19:00 07:00 Intake Total 1400 ml 1300.000 ml Balance 1400 ml 1300.000 ml Intake Oral 1300 ml IV Total 100 ml 1300.000 ml # Voids 6 4 Laboratory Tests 11/30/19 05:30: White Blood Count 10.2, Red Blood Count 3.36L, Hemoglobin 10.6L, Hematocrit 31.1L, Mean Corpuscular Volume 93, Mean Corpuscular Hemoglobin 31.7H, Mean Corpuscular Hemoglobin Concent 34.2, Red Cell Distribution Width 10.9L, Platelet Count 279, Mean Platelet Volume 6.5, Neutrophils (%) (Auto) 64.4, Lymphocytes (%) (Auto) 18.4L, Monocytes (%) (Auto) 8.2, Eosinophils (%) (Auto) 7.9H, Basophils (%) (Auto) 1.1, Erythrocyte Sedimentation Rate 56H, Sodium Level 140, Potassium Level 4.2, Chloride Level 105, Carbon Dioxide Level 32, Anion Gap 3L, Blood Urea Nitrogen 14, Creatinine 0.9, Estimat Glomerular Filtration Rate > 60, Glucose Level 191H, Calcium Level 8.1L Height (Feet): 5 Height (Inches): 8.00 Weight (Pounds): 165 Objective General Appearance: no apparent distress Lines, tubes and drains: peripheral HEENT: normocephalic, atraumatic, anicteric Neck: non-tender, normal alignment, supple Respiratory/Chest: chest wall non-tender, lungs clear, normal breath sounds Cardiovascular/Chest: normal peripheral pulses, normal rate, regular rhythm, no gallop/murmur, no JVD Abdomen: normal bowel sounds, non tender, soft, no organomegaly Extremities: other Skin Exam: other - full-thickness ulceration noted on the lateral aspect of the left fourth toe. There is scant serous drainage noted from the site. No malodor is noted. Skin is erythematous. No bone or tendon exposed. Surgical incision sites from previous surgeries bilateral are healed. Neurologic: management lead II-XII grossly normal, no motor/sensory deficits, oriented x 3 Musculoskeletal: normal muscle bulk Tam Garcia M.D. Nov 30, 2019 09:44
[2019-11-30] MEDS ORDERED: LANTUS SOL100 UNIT/1 SUBQ (09:55)
[2019-11-30] MEDS ORDERED: VANCOMYCIN1 GM/2002 IVPB (09:55)
[2019-11-30] MEDS ORDERED: NOVOLOG100 UNITS1 SUBQ (09:55)
[2019-11-30] MEDS ORDERED: NORCO 5-325 TA1 EACH ORAL (09:55)
[2019-11-30] MEDS ORDERED: Vanco pharmacy to dose MISC (09:55)
[2019-11-30] MEDS ORDERED: MIRTAZAPINE15 M3 ORAL (09:55)
[2019-11-30] MEDS ORDERED: NORCO 10-325 T1 EACH ORAL (09:55)
[2019-11-30] MEDS ORDERED: LEXAPRO10 MG ORAL (09:55)
[2019-11-30] MEDS ORDERED: ACETAMINOPHEN325 M1 ORAL (09:55)
--- NOTE | 2019-11-30 09:56 | Discharge Summary ---
Discharge Summary Hospital Course Date of Admission Nov 23, 2019 at 20:15 Date of Discharge 11/30/2019 Admitting Diagnosis osteomyelitis HPI Ck Sawyer is a 54 year old male who was admitted on Nov 23, 2019 at 20:15 for Cellulitis Consultations ID, surgery, podiatry, depression Procedures MRI Hospital Course 54 year old male with uncontrolled DM, medication non compliance, prior multiple amputations presents with left 4th toe infection. #Osteomyelitis of the left fourth toe. #Diabetic foot ulcer, left foot. #Type 2 diabetes mellitus with peripheral neuropathy. A1c 7.7 #History of healed partial fifth ray amputations, bilateral. #Medication non compliance Med surg IV zosyn and vancomycin, wound and blood cultures. MRSA, d/c Zosyn. Continue vancomycin day ID and podiatry consults MRI left foot, suspicious for OM, per podiatry treat for osteo for 6 weeks IV antibiotics and wound care glycemic control, insulin ordered. keep glucose 140-180 range. Lantus 12 units qhs, sliding scale picc placed #Depression Denies suicidal ideation, will obtains psychiatry consult with Dr. Templeton Started on Lexapro and Mirtazapine DC planning: SHANE campos I spent 40 minutes on this encounter. Greater than 50% spent in counseling and care coordination. Case discussed with ID and podiatry. Plan of care discussed with patient. Time of note may not reflect time of encounter. Discharge Medications New Medications: Insulin Glargine (Lantus) 100 Unit/1 Ml Insuln.pen 12 UNITS SUBQ BEDTIME for 30 Days, #1 EA 0 Refills Vancomycin/Water For Inj (Peg) (Vancomycin 1 Gram/200 ml Bag) 1 Gm/200 Ml Piggyback 1 GM IVPB EVERY 8 HOURS for 36 Days, #36 BAG Acetaminophen* (Acetaminophen 325MG Tablet*) 325 Mg Tablet 650 MG ORAL Q6H PRN for 10 Days, #10 TAB Escitalopram Oxalate* (Lexapro*) 10 Mg Tablet 10 MG ORAL DAILY for 10 Days, #10 TAB Hydrocodone Bit/Acetaminophen 10-325* ([place] 10-325*) 1 Each Tablet 1 TAB ORAL Q6H PRN for 10 Days, #10 TAB PRN PAIN 7-10 Hydrocodone Bit/Acetaminophen 5-325* ([place] 5-325*) 1 Each Tablet 1 TAB ORAL Q6H PRN for 10 Days, #14 TAB PRN pain 4-6 Insulin Aspart (Novolog Flexpen) 100 Unit/1 Ml Insuln.pen 0 UNITS SUBQ BEFORE MEALS AND HS for 10 Days, #1 EA Mirtazapine* (Mirtazapine*) 15 Mg Tablet 7.5 MG ORAL BEDTIME for 10 Days, #10 TAB [[facility] pharmacy to dose] () 1 EA MISC 1 EA MISC DAILY PRN for 35 Days, #1 EA Discharge Condition Upon Discharge: stable Discharge Disposition Patient was discharged to [facility] Discharge Diagnoses: (1) Osteomyelitis of fourth toe of left foot (2) Osteomyelitis (3) Depression (4) Uncontrolled diabetes mellitus (5) Medication nonadherence due to psychosocial problem (6) Uncontrolled diabetes mellitus with diabetic neuropathy Tam Garcia M.D. Nov 30, 2019 09:56
[2019-11-30 12:00] VITALS: BP 158/86
--- NOTE | 2019-11-30 12:00 | NUR ---
NURSE NOTES: Patient for discharge today to [facility], gave report to Katja KU. Spoke with son, Ck Sawyer .
--- NOTE | 2019-11-30 12:30 | NUR ---
NURSE NOTES: Patient discharged via ambulance. Discharge instructions given. No new skin issues noted. ID band removed. Belongings accounted for, claimed to be missing a brown notepad with important phone numbers. Said item was not listed in the belongings list but RN called [facility] and [facility] but was that told they did not find this item in their area. Transported by ambulance accompanied by ambulance personnel.
--- NOTE | 2019-11-30 15:02 | Surgery Progress Note ---
Surgery Progress Note Subjective Additional Comments no acute events ready for d/c today states he is well no n/v/f/c comfortable Objective Last 24 Hour Vital Signs Date Time Temp Pulse Resp B/P (MAP) Pulse Ox O2 Delivery O2 Flow Rate FiO2 11/30/19 12:00 97.8 73 19 158/86 (110) 99 11/30/19 09:00 Room Air Room Air 11/30/19 08:00 97.5 68 19 157/85 (109) 98 11/30/19 04:28 98.0 73 18 125/83 (97) 100 11/30/19 04:05 98.6 78 18 132/68 (89) 96 11/30/19 00:45 98.5 89 16 129/77 (94) 100 11/29/19 20:51 Room Air Room Air 11/29/19 20:42 97.8 73 12 159/92 (114) 99 11/29/19 16:00 98.2 74 19 143/84 (103) 97 I&O Intake and Output 11/29/19 11/30/19 19:00 07:00 Intake Total 1400 ml 1300.000 ml Balance 1400 ml 1300.000 ml Intake Oral 1300 ml IV Total 100 ml 1300.000 ml # Voids 6 4 Dressing: saturated Wound: clean Cardiovascular: RSR Respiratory: clear Abdomen: soft, non-tender, present bowel sounds Extremities: edema, no tenderness, no cyanosis, other Laboratory Tests Test 11/30/19 05:30 White Blood Count 10.2 K/UL (4.8-10.8) Red Blood Count 3.36 M/UL (4.70-6.10) L Hemoglobin 10.6 G/DL (14.2-18.0) L Hematocrit 31.1 % (42.0-52.0) L Mean Corpuscular Volume 93 FL (80-99) Mean Corpuscular Hemoglobin 31.7 PG (27.0-31.0) H Mean Corpuscular Hemoglobin Concent 34.2 G/DL (32.0-36.0) Red Cell Distribution Width 10.9 % (11.6-14.8) L Platelet Count 279 K/UL (150-450) Mean Platelet Volume 6.5 FL (6.5-10.1) Neutrophils (%) (Auto) 64.4 % (45.0-75.0) Lymphocytes (%) (Auto) 18.4 % (20.0-45.0) L Monocytes (%) (Auto) 8.2 % (1.0-10.0) Eosinophils (%) (Auto) 7.9 % (0.0-3.0) H Basophils (%) (Auto) 1.1 % (0.0-2.0) Erythrocyte Sedimentation Rate 56 MM/HR (0-20) H Sodium Level 140 MMOL/L (136-145) Potassium Level 4.2 MMOL/L (3.5-5.1) Chloride Level 105 MMOL/L (98-107) Carbon Dioxide Level 32 MMOL/L (21-32) Anion Gap 3 mmol/L (5-15) L Blood Urea Nitrogen 14 mg/dL (7-18) Creatinine 0.9 MG/DL (0.55-1.30) Estimat Glomerular Filtration Rate > 60 mL/min (>60) Glucose Level 191 MG/DL (74-106) H Calcium Level 8.1 MG/DL (8.5-10.1) L Plan Problems: (1) Osteomyelitis Assessment & Plan: Osteomyelitis left foot fourth ray history of prior on the fifth ray status post amputation Labs noted MRI as below Seen by podiatry plan for IV antibiotic care Continue with local wound care and antibiotics cellulitis There is evidence of erosion of the fourth proximal and distal phalange presumably on the basis of acute osteomyelitis. Correlate clinically. Patient has had prior amputation at the base of the fifth metatarsal. There is a well-corticated periarticular erosion on the medial side of the first interphalangeal joint. Similar finding in the medial side of the second proximal interphalangeal joint also noted. The nature of these lesions is unknown but the incidental obviously and may be due to inflammatory arthritis. Correlate clinically. IMPRESSION: Extensive erosion of the middle and distal phalanges of the fourth toe suspicious for acute osteomyelitis. Correlate clinically. Scattered periarticular erosions. Consider inflammatory arthritis Findings are highly suspicious for osteomyelitis of the fourth proximal, middle, and distal phalanges. STIR signal abnormality and subtle T1 signal abnormality of the first metatarsal head and neck, suspicious but not conclusive for acute osteomyelitis Abnormal increased STIR and decreased T1 signal within the medial first metatarsal sesamoid, suspicious for osteomyelitis versus injury of this bone Slightly increased her signal in the third metatarsal shaft and neck, with only equivocal minimal T1 signal abnormality. Slightly increased STIR signal within the third proximal phalanx without T1 signal abnormality This could represent reactive changes versus very early osteomyelitis changes Soft tissue changes, as described. Given stated clinical history, most likely on the basis of cellulitis. Edema of hemodynamic origin also possible. No definite drainable abscess demonstrated (2) Diabetic foot ulcer (3) Cellulitis Assessment & Plan: Left foot cellulitis secondary to infection and abscess of the fourth ray Antibiotics as per infectious disease Podiatry eval Continue with antibiotics as per podiatry Local wound care SNF placement Discharge planning Thank you Thank you for let me participate patient's care will follow with recommendations Additional Comments time of note does not represent when patient was seen. Matthew Loera Nov 30, 2019 15:02
--- NOTE | 2019-12-01 06:45 | Progress Note ---
DATE: 11/30/2019 SUBJECTIVE: The patient is doing well. No behavior issues noted. Calm and cooperative. The patient is less depressed. MENTAL STATUS EXAMINATION: The patient is alert and oriented times self, place, situation, and date. Mood is depressed. Affect is constricted. Congruent with mood. Thought process is linear. Thought content, no suicidal or homicidal ideation. ASSESSMENT: 1. Anxiety disorder. 2. Major depressive disorder. PLAN: 1. We will continue current medications. 2. Provide the patient with reality orientation and supportive therapy. Juan Daniel Templeton M.D. DR: EZIO JOB#: [id number] CC:
== END 2019-11-30 12:39 | DRG 638 ==
LOC: EDBD 15:44 → EMR 17:20 → 3E 20:15 → EDBEDREQ 20:48 → 4E 11-26 03:00
PROC: 02HV33Z Insertion of Infusion Device into Superior Vena Cava, Percutaneous Approach (ICD-10-PCS; principal; 2019-11-29)
DX: E11.69 Type 2 diabetes mellitus with other specified complication (principal); M86.8X8 Other osteomyelitis, other site; L03.116 Cellulitis of left lower limb; E11.621 Type 2 diabetes mellitus with foot ulcer; E11.65 Type 2 diabetes mellitus with hyperglycemia; E11.40 Type 2 diabetes mellitus with diabetic neuropathy, unspecified; Z89.422 Acquired absence of other left toe(s); Z91.14 Patient's other noncompliance with medication regimen; F32.9 Major depressive disorder, single episode, unspecified; Z89.421 Acquired absence of other right toe(s); B95.61 Methicillin susceptible Staphylococcus aureus infection as the cause of diseases classified elsewhere; I10 Essential (primary) hypertension; F41.9 Anxiety disorder, unspecified
CPT/HCPCS: 36415; 36569; 76937; 80048; 80053; 80202; 82962; 83036; 85025; 85610; 85651; 85730; 87070; 87081; 87181; 87205; 96365; 99285; J1815